=== PATIENT | male | born 1940 | race Caucasian/White ===

== ENCOUNTER 2018-01-19 12:54 | Emergency (ER) | payer OTHER ==
[2018-01-19 13:01] VITALS: BP 147/84; PULSE 98; TEMP 97.5; BMI 23.7
--- NOTE | 2018-01-19 13:06 | PDOC ---
History of Present Illness - General Chief Complaint: Pain Stated Complaint: RT FOOT PAIN, SWELLING Time Seen by Provider: 01/19/18 13:00 History Source: Patient (Patient walked in complaining of pain and swelling of right foot, probable for 3-4 days.Seen at his hospital, X rays done post op shoe applied, wearing it comfortable), Care Provider (at [facility]) - History of Present Illness Timing/Duration: unsure Severity: mild Modifying Factors: improves with: rest Associated Symptoms: reports: denies symptoms Past History - Travel Traveled outside of the country in the last 30 days: No Close contact w/someone who was outside of country & ill: No - Past Medical History Allergies/Adverse Reactions: Allergies Allergy/AdvReac Type Severity Reaction Status Date / Time No Known Allergies Allergy Verified 01/19/18 12:56 Home Medications: Ambulatory Orders NK [No Known Home Medication] 01/19/18 Anemia: No Asthma: No Cancer: No Cardiac Disorders: Yes (H/O IRREGULAR HEARTBEAT X 1) CVA: No COPD: No CHF: No Dementia: No Diabetes: No GI Disorders: No Disorders: No HTN: No Hypercholesterolemia: No Liver Disease: No Seizures: No Thyroid Disease: No - Surgical History Abdominal Surgery: No Appendectomy: No Cardiac Surgery: No Cholecystectomy: No Lung Surgery: No Neurologic Surgery: No Orthopedic Surgery: No - Immunization History Immunization Up to Date: Yes - Suicide/Smoking/Psychosocial Hx Smoking History: Never smoked Have you smoked in the past 12 months: No Information on smoking cessation initiated: No Hx Alcohol Use: No Drug/Substance Use Hx: No Substance Use Type: None Hx Substance Use Treatment: No Review of Systems - Review of Systems Able to Perform ROS?: Yes Is the patient limited Japanese proficient: Yes Constitutional: No: Symptoms Reported, See HPI, Chills, Diaphoresis, Fever, Loss of Appetite, Malaise, Night Sweats, Weakness, Weight Stable, Unintentional Wgt. Loss, Unexplained wgt Loss, Other HEENTM: No: Symptoms Reported, See HPI, Eye Pain, Blurred Vision, Tearing, Recent change in vision, Double Vision, Cataracts, Ear Pain, Ocular Prothesis, Ear Discharge, Nose Pain, Nose Congestion, Tinnitus, Nose Bleeding, Hearing Loss , Throat Pain, Throat Swelling, Mouth Pain, Dental Problems, Difficulty Swallowing, Mouth Swelling, Other Musculoskeletal: Yes: Symptoms Reported, See HPI, Joint Pain All Other Systems: Reviewed and Negative *Physical Exam - Vital Signs Last Vital Signs Temp Pulse Resp BP Pulse Ox 97.5 F L 98 H 18 147/84 97 01/19/18 12:54 01/19/18 12:54 01/19/18 12:54 01/19/18 12:54 01/19/18 12:54 - Physical Exam General Appearance: Yes: Nourished, Appropriately Dressed, Mild Distress HEENT: positive: ARIES Neck: positive: Supple Vascular Pulses: Femoral (R): 4+, Femoral (L): 4+, Dorsalis-Pedis (R): 4+, Doralis-Pedis (L): 4+ Extremity: positive: Normal Capillary Refill, Tender (Tenderness on the lateral aspect of the foot with no discoloration. Normal Achile's Normal ankle exam). 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, Fully Oriented (Some limitation in thought processs, memory...), Alert, Normal Mood/Affect Medical Decision Making - Medical Decision Making X rays read by me = destiny 01/22/18 07:48 *DC/Admit/Observation/Transfer Diagnosis at time of Disposition: Foot sprain Qualifiers: Encounter type: initial encounter Laterality: right Qualified Code(s): S93.601A - Unspecified sprain of right foot, initial encounter - Discharge Dispostion Disposition: HOME Condition at time of disposition: Stable Decision to Admit order: No - Referrals - Patient Instructions Printed Discharge Instructions: DI for Foot Sprain Additional Instructions: Keep foot elevated - Post Discharge Activity
== END 2018-01-19 14:42 | disposition home or self-care (01) ==
LOC: FER 12:54
DX: S93.601A Unspecified sprain of right foot, initial encounter (principal); X58.XXXA Exposure to other specified factors, initial encounter; Y93.89 Activity, other specified; Y92.9 Unspecified place or not applicable; I49.9 Cardiac arrhythmia, unspecified
CPT/HCPCS: 73630-TC-RT-FY; 99283-25

== ENCOUNTER 2018-12-01 14:26 | Inpatient (IN) | payer OTHER ==
[2018-12-01 16:20] LABS: BASO % 0.6 % (0-2.0); EOS % 1.5 % (0-4.5); HEMATOCRIT 46.8 % (35.4-49); HEMOGLOBIN 15.8 GM/dl (11.7-16.9); LYMPH % 9.7 % (8-40); MCH 31.8 pg (25.7-33.7); MCHC 33.8 g/dl (32.0-35.9); MEAN CELL VOLUME 94.2 fl (80-96); MEAN PLT VOLUME 9.6 fl (7.5-11.1); MONO % 8.2 % (3.8-10.2); PLATELET COUNT 208 K/MM3 (134-434); RBC 4.97 M/mm3 (4.00-5.60); RDW 12.8 % (11.9-15.9); WHITE BLOOD COUNT 7.7 K/mm3 (4.0-10.8)
[2018-12-01 16:30] LABS: ALBUMIN 3.6 g/dl (3.4-5.0); BILIRUBIN,TOTAL 0.9 mg/dl (0.2-1); CALCIUM 8.9 mg/dl (8.5-10); CREATININE 1.1 mg/dl (0.55-1.3); POTASSIUM 3.9 mmol/L (3.5-5.1); TOT PROT 6.4 g/dl (6.4-8.2)
--- NOTE | 2018-12-01 17:21 | PDOC ---
Documentation entered by Luly Carver SCRIBE, acting as scribe for Ray Gary MD. Ray Gary MD: This documentation has been prepared by the Mehul hinkle Adrianna, SCRIBE, under my direction and personally reviewed by me in its entirety. I confirm that the documentation accurately reflects all work, treatment, procedures, and medical decision making performed by me. History of Present Illness - General Chief Complaint: Injury Stated Complaint: FALL,BRUISE TO EYE - History of Present Illness Initial Comments: The patient is an 78 year old male, with a significant PMH of recurrent falls, who presents to the ED for evaluation s/p fall earlier today. Patient notes he was out walking to get ice cream this afternoon, when he felt sudden onset resistance to move. Patient notes he pushed through this sensation, but felt weak and sleepy causing him to fall. He endorses hitting the right side of his head and has an abrasion to his right cheek. He denies any LOC, but notes he could not get up to walk again so a passerby called EMS. Patient reports feeling weak while in the ED. He denies any headache at this time. Patient is a poor historian. Allergies: NKA, NKDA Surgical History: None reported Social History: Denies EtOH, tobacco, or illicit drug use. Lives at home by self. PCP: Does not have one (referred to Babar Neumann) Past History - Past Medical History Allergies/Adverse Reactions: Allergies Allergy/AdvReac Type Severity Reaction Status Date / Time No Known Allergies Allergy Verified 12/01/18 14:27 Home Medications: Ambulatory Orders NK [No Known Home Medication] 01/19/18 Anemia: No Asthma: No Cancer: No Cardiac Disorders: Yes (H/O IRREGULAR HEARTBEAT X 1) CVA: No COPD: No CHF: No Dementia: No Diabetes: No GI Disorders: No Disorders: No HTN: No Hypercholesterolemia: No Liver Disease: No Seizures: No Thyroid Disease: No - Surgical History Abdominal Surgery: No Appendectomy: No Cardiac Surgery: No Cholecystectomy: No Lung Surgery: No Neurologic Surgery: No Orthopedic Surgery: No - Immunization History Immunization Up to Date: Yes - Suicide/Smoking/Psychosocial Hx Smoking History: Never smoked Have you smoked in the past 12 months: No Hx Alcohol Use: No Drug/Substance Use Hx: No Substance Use Type: None Hx Substance Use Treatment: No Review of Systems - Review of Systems Comments:: GENERAL/CONSTITUTIONAL: +S/p fall. +Weakness. No fever or chills. HEAD, EYES, EARS, NOSE AND THROAT: +Abrasion to the right cheek. No change in vision. No ear pain or discharge. No sore throat. CARDIOVASCULAR: No chest pain or shortness of breath. RESPIRATORY: No cough, wheezing, or hemoptysis. GASTROINTESTINAL: No nausea, vomiting, diarrhea or constipation. GENITOURINARY: No dysuria, frequency, or change in urination. MUSCULOSKELETAL: No joint or muscle swelling or pain. No neck or back pain. SKIN: No rash NEUROLOGIC: No headache, vertigo, loss of consciousness, or change in strength/ sensation. ENDOCRINE: No increased thirst. No abnormal weight change. HEMATOLOGIC/LYMPHATIC: No anemia, easy bleeding, or history of blood clots. ALLERGIC/IMMUNOLOGIC: No hives or skin allergy. *Physical Exam - Vital Signs Last Vital Signs Temp Pulse Resp BP Pulse Ox 98.3 F 87 18 126/77 94 L 12/01/18 14:27 12/01/18 14:27 12/01/18 14:27 12/01/18 14:27 12/01/18 14:27 - Physical Exam Comments: GENERAL: +Mildly confused. +Oriented to person and place, but not to time. + According to EMT who know the patient well, his mental status is unchanged from his usual baseline. No acute distress. Afebrile. Vital signs are normal. HEAD: +Mild contusion of the right lateral orbital rim without palpable deformity of significant tenderness. EYES: PERRLA, EOMI, sclera anicteric, conjunctiva clear. Visual schaefer intact. ENT: Auricles normal inspection, hearing grossly normal, nares patent, oropharynx clear without exudates. Moist mucosa NECK: Good ROM, supple, no lymphadenopathy, JVD, or masses. No deformity. LUNGS: Breath sounds equal, clear to auscultation bilaterally. No wheezes, and no crackles. No chest wall tenderness or deformity. No rib cage tenderness or deformity. HEART: Regular rate and rhythm, normal S1 and S2, no murmurs, rubs or gallops ABDOMEN: Soft, nontender, normoactive bowel sounds without organomegally. Nondistended. No guarding, no rebound. No masses EXTREMITIES: No visible or palpable trauma. Full range of motion of the bilateral shoulders and hips without restrictions, no edema. No clubbing or cyanosis. No cords, erythema, or tenderness NEUROLOGICAL: +Generalized weakness with inability to bear weight. Cranial nerves II through XII grossly intact. Normal speech. No focal sensory or motor deficits. SKIN: Warm, Dry, normal turgor, no rashes or lesions noted. ED Treatment Course - LABORATORY CBC & Chemistry Diagram: 12/01/18 15:45 12/01/18 15:45 - ADDITIONAL ORDERS Additional order review: Laboratory Results 12/01/18 12/01/18 12/01/18 16:19 15:45 15:45 Sodium 138 Potassium 3.9 Chloride 105 Carbon Dioxide 27 Anion Gap 6 L BUN 16.0 Creatinine 1.1 Est GFR (CKD-EPI)AfAm 73.09 Est GFR (CKD-EPI)NonAf 63.07 POC Glucometer 89 Random Glucose 96 Calcium 8.9 Total Bilirubin 0.9 AST 21 ALT 15 Alkaline Phosphatase 67 Creatine Kinase 129 Troponin I < 0.03 Total Protein 6.4 Albumin 3.6 12/01/18 12/01/18 16:19 15:45 RBC 4.97 MCV 94.2 MCHC 33.8 RDW 12.8 MPV 9.6 Neutrophils % 80.0 Lymphocytes % 9.7 D Monocytes % 8.2 Eosinophils % 1.5 D Basophils % 0.6 POC Glucometer 89 - RADIOLOGY Radiology Studies Ordered: Category Date Time Status HEAD CT WITHOUT CONTRAST [CT] Stat CT Scan 12/01/18 15:23 Completed CHEST X-RAY PORTABLE* [RAD] Stat Radiology 12/01/18 15:22 Taken Radiograph Interpretation: EXAM#: TYPE/EXAM: RESULT: [id number] CT/HEAD CT WITHOUT CONTRAST Evaluate for seizures IMPRESSION: No significant interval change or acute intracranial pathology is identified. Correlate clinically to determine further evaluation and follow-up. Reported By: Bran Hyman MD 12/01/18 15:52 Medical Decision Making - Medical Decision Making 12/01/18 17:08 78-year-old male with apparent syncopal episode while walking on a trail in the [facility]. Fell and injured his head. Discovered by fellow hikers and brought to the emergency room by EMS. Moderate dementia and confusion, though he is oriented to person and place. According to EMS personnel, who had had numerous encounters with this patient in the past, his mental status is unchanged from usual. Patient lives in his own house, which he shares with a friend named Dean. But he has no relatives. Attempts to call his home and speak to his friend were unsuccessful. I'll phone numbers that he has provided were nonfunctional. Patient complains of no injury or pain, but states that he "cannot walk". There are no focal sensory or motor deficits demonstrable, but on attempt to ambulate the patient he was unable to bear weight or ambulate at all. It seems likely that the patient has experienced a syncopal episode. He does admit to passing out in the past. He has no doctor and does not recall the last time he has seen a physician. It is uncertain whether the patient can continue to care for himself in his present condition. EKG reveals normal sinus rhythm 79/m. Left axis deviation. Incomplete right bundle branch block. There is poor R-wave progression and T-wave inversions in lead 1 and aVL. Chest x-ray appears negative CBC and chemistries show no significant abnormalities, with normal cardiac enzymes. The patient wears a diaper and so far the urine has not been obtained. 12/01/18 17:[address] is negative. Spoke to [employer] covering hospitalist service, for Dr. Enamorado. Accepted admission. *DC/Admit/Observation/Transfer Diagnosis at time of Disposition: Syncope Qualifiers: Syncope type: unspecified Qualified Code(s): R55 - Syncope and collapse - Discharge Dispostion Condition at time of disposition: Stable Decision to Admit order: Yes - Referrals - Patient Instructions - Post Discharge Activity
--- NOTE | 2018-12-01 18:13 | HP ---
CHIEF COMPLAINT: near syncope PCP: none HISTORY OF PRESENT ILLNESS: This is an 78 year old male with no reported past medical history as per patient , although chart review reveals h/o falls, who presented after a near-syncopal episode. Pt reports that he was walking and became very weak and was unable to stand. He fell, sustaining an abrasion to his right cheek and was unable to get up. Bystanders activated EMS and he was brought to the ED. He denies any loss of consciousness. Pt reports being in his usual state of health prior to incident and denies any SOB, chest pain, lightheadedness, dizziness, abdominal pain, N/V. ER course was notable for: (1) CT head without acute findings (2) ECG without acute changes (3) troponin WNL Recent Travel: none PAST MEDICAL HISTORY: pt denies PAST SURGICAL HISTORY: pt denies Social History: Smoking: pt denies Alcohol: pt denies Drugs: pt denies Family History: Pt is unsure how his parents , but can not recall any heart disease, stroke or cancer Pt has no siblings Allergies No Known Allergies Allergy (Verified 12/01/18 14:27) HOME MEDICATIONS: 3 Medication Instructions Recorded NK [No Known Home Medication] 01/19/18 REVIEW OF SYSTEMS CONSTITUTIONAL: Present: generalized weakness, malaise Absent: fever, chills, diaphoresis, loss of appetite, weight change HEENT: Absent: rhinorrhea, nasal congestion, throat pain, throat swelling, difficulty swallowing, mouth swelling, ear pain, eye pain, visual changes CARDIOVASCULAR: Absent: chest pain, syncope, palpitations, irregular heart rate, lightheadedness , peripheral edema RESPIRATORY: Absent: cough, shortness of breath, dyspnea with exertion, orthopnea, wheezing, stridor, hemoptysis GASTROINTESTINAL: Absent: abdominal pain, abdominal distension, nausea, vomiting, diarrhea, constipation, melena, hematochezia GENITOURINARY: Absent: dysuria, frequency, urgency, hesitancy, hematuria, flank pain, genital pain MUSCULOSKELETAL: Absent: myalgia, arthralgia, joint swelling, back pain, neck pain SKIN: Absent: rash, itching, pallor HEMATOLOGIC/IMMUNOLOGIC: Absent: easy bleeding, easy bruising, lymphadenopathy, frequent infections ENDOCRINE: Absent: unexplained weight gain, unexplained weight loss, heat intolerance, cold intolerance NEUROLOGIC: Absent: headache, focal weakness or paresthesias, dizziness, unsteady gait, seizure, mental status changes, bladder or bowel incontinence PSYCHIATRIC: Absent: anxiety, depression, suicidal or homicidal ideation, hallucinations. PHYSICAL EXAMINATION Vital Signs - 24 hr 3 12/01/18 14:27 Temperature 98.3 F Pulse Rate 87 Respiratory 18 Rate Blood Pressure 126/77 O2 Sat by Pulse 94 L Oximetry (%) GENERAL: Awake, alert, and fully oriented, in no acute distress. HEAD: Normal with no signs of trauma. EYES: Pupils equal, round and reactive to light, extraocular movements intact, sclera anicteric, conjunctiva clear. No lid lag. EARS, NOSE, THROAT: Ears normal, nares patent, oropharynx clear without exudates. Moist mucous membranes. NECK: Normal range of motion, supple without lymphadenopathy, JVD, or masses. LUNGS: Breath sounds equal, clear to auscultation bilaterally. No wheezes, and no crackles. No accessory muscle use. HEART: Regular rate and rhythm, normal S1 and S2 without murmur, rub or gallop. ABDOMEN: Soft, nontender, not distended, normoactive bowel sounds, no guarding, no rebound, no masses. No hepatomegaly or splenomegaly. MUSCULOSKELETAL: Normal range of motion at all joints. No bony deformities or tenderness. No CVA tenderness. UPPER EXTREMITIES: 2+ pulses, warm, well-perfused. No cyanosis. No clubbing. No peripheral edema. LOWER EXTREMITIES: 2+ pulses, warm, well-perfused. No calf tenderness. No peripheral edema. NEUROLOGICAL: Cranial nerves II-XII grossly intact. Normal speech. Gait not observed. PSYCHIATRIC: Cooperative. Good eye contact. Appropriate mood and affect. SKIN: Warm, dry, normal turgor, no rashes or lesions noted, normal capillary refill. Laboratory Results - last 24 hr 3 12/01/18 12/01/18 12/01/18 12/01/18 15:45 15:45 15:45 16:19 WBC 7.7 RBC 4.97 Hgb 15.8 Hct 46.8 MCV 94.2 MCH 31.8 MCHC 33.8 RDW 12.8 Plt Count 208 D MPV 9.6 Absolute Neuts (auto) 6.3 Neutrophils % 80.0 Lymphocytes % 9.7 D Monocytes % 8.2 Eosinophils % 1.5 D Basophils % 0.6 Sodium 138 Potassium 3.9 Chloride 105 Carbon Dioxide 27 Anion Gap 6 L BUN 16.0 Creatinine 1.1 Est GFR (CKD-EPI)AfAm 73.09 Est GFR (CKD-EPI)NonAf 63.07 POC Glucometer 89 Random Glucose 96 Calcium 8.9 Total Bilirubin 0.9 AST 21 ALT 15 Alkaline Phosphatase 67 Creatine Kinase 129 Troponin I < 0.03 Total Protein 6.4 Albumin 3.6 ECG NORMAL SINUS RHYTHM vent rate 79, QTC 477 non specific T wave abnormality; TWI lead I, aVL possible left atrial enlargement left axis deviation incomplete RBBB CT head IMPRESSION: No significant interval change or acute intracranial pathology is identified. Correlate clinically to determine further evaluation and follow-up. Reported By: Bran Hyman MD 12/01/18 [id number] ASSESSMENT/PLAN: 78yM with no known past medical history presented s/p near syncopal event now being admitted for further observation. Near-syncope/generalized weakness - troponin neg x1, trend x 2 more - ECG without acute changes - consider echocardiogram, last in 2016, normal EF and LV size - consider neuro consult - consider PT consult if no improvement FEN - po fluids as tolerated - BMP in am - low sodium diet as tolerated DVT PPX deferred as anticipated LOS <48h, reassess if LOS exceeds 48h Dispo: pt requires further observation for management of his emergent condition. Family Medical History Family History: Denies Visit type - Emergency Visit Emergency Visit: Yes ED Registration Date: 12/01/18 Care time: The patient presented to the Emergency Department on the above date and was hospitalized for further evaluation of their emergent condition. - New Patient This patient is new to me today: Yes Date on this admission: 12/01/18 - Critical Care Critical Care patient: No
[2018-12-01 19:01] VITALS: BMI 26.7
[2018-12-01 22:38] LABS: EPITHELIAL CELLS FEW /hpf
[2018-12-02 09:10] LABS: HEMATOCRIT 47.2 % (35.4-49); HEMOGLOBIN 15.9 GM/dl (11.7-16.9); MCHC 33.8 g/dl (32.0-35.9); MEAN CELL VOLUME 94.9 fl (80-96); MEAN PLT VOLUME 10.6 fl (7.5-11.1); PLATELET COUNT 148 K/MM3 (134-434); RBC 4.97 M/mm3 (4.00-5.60); RDW 12.4 % (11.9-15.9); WHITE BLOOD COUNT 6.9 K/mm3 (4.0-10.8)
[2018-12-02 09:26] LABS: CALCIUM 8.7 mg/dl (8.5-10); PHOSPHOROUS 2.9 mg/dl (2.5-4.9); POTASSIUM 4.2 mmol/L (3.5-5.1)
--- NOTE | 2018-12-02 10:18 | PN ---
Physical Exam: SUBJECTIVE: Patient seen and examined, pt denies BASS, dizziness, cp, sob, palpitations, abdominal pain, N/V/D or urinary symptoms. OBJECTIVE: Vital Signs Period Temp Pulse Resp BP Sys/Stanton Pulse Ox Last 24 Hr 97.8 F-98.9 F 70-90 17-18 126-150/77-96 91-97 GENERAL: The patient is awake, alert, and fully oriented, in no acute distress. HEAD: Normal with no signs of trauma. EYES: PERRL, extraocular movements intact, sclera anicteric, conjunctiva clear. No ptosis. ENT: Ears normal, nares patent, oropharynx clear without exudates, moist mucous membranes. NECK: Trachea midline, full range of motion, supple. LUNGS: Breath sounds equal, clear to auscultation bilaterally, no wheezes, no crackles, no accessory muscle use. HEART: Regular rate and rhythm, S1, S2 without murmur, rub or gallop. ABDOMEN: Soft, nontender, nondistended, normoactive bowel sounds, no guarding, no rebound, no hepatosplenomegaly, no masses. EXTREMITIES: 2+ pulses, warm, well-perfused, no edema. NEUROLOGICAL: Cranial nerves II through XII grossly intact. Normal speech, gait not observed. PSYCH: Normal mood, normal affect. SKIN: Warm, dry, normal turgor, no rashes or lesions noted- RT cheek with mild redness and abrasion. Laboratory Results - last 24 hr 12/01/18 12/01/18 12/01/18 15:45 15:45 15:45 WBC 7.7 RBC 4.97 Hgb 15.8 Hct 46.8 MCV 94.2 MCH 31.8 MCHC 33.8 RDW 12.8 Plt Count 208 D MPV 9.6 Absolute Neuts (auto) 6.3 Neutrophils % 80.0 Lymphocytes % 9.7 D Monocytes % 8.2 Eosinophils % 1.5 D Basophils % 0.6 Sodium 138 Potassium 3.9 Chloride 105 Carbon Dioxide 27 Anion Gap 6 L BUN 16.0 Creatinine 1.1 Est GFR (CKD-EPI)AfAm 73.09 Est GFR (CKD-EPI)NonAf 63.07 POC Glucometer Random Glucose 96 Calcium 8.9 Phosphorus Magnesium Total Bilirubin 0.9 AST 21 ALT 15 Alkaline Phosphatase 67 Creatine Kinase 129 Troponin I < 0.03 Total Protein 6.4 Albumin 3.6 Urine Color Urine Appearance Urine pH Urine Protein Urine Glucose (UA) Urine Ketones Urine Blood Urine Nitrite Urine Bilirubin Urine Urobilinogen Ur Leukocyte Esterase Urine RBC Urine WBC Ur Transition Epith Cell 12/01/18 12/01/18 12/01/18 16:19 22:00 22:05 WBC RBC Hgb Hct MCV MCH MCHC RDW Plt Count MPV Absolute Neuts (auto) Neutrophils % Lymphocytes % Monocytes % Eosinophils % Basophils % Sodium Potassium Chloride Carbon Dioxide Anion Gap BUN Creatinine Est GFR (CKD-EPI)AfAm Est GFR (CKD-EPI)NonAf POC Glucometer 89 Random Glucose Calcium Phosphorus Magnesium Total Bilirubin AST ALT Alkaline Phosphatase Creatine Kinase Troponin I < 0.03 Total Protein Albumin Urine Color Yellow Urine Appearance Clear Urine pH 7.0 Urine Protein Negative Urine Glucose (UA) Negative Urine Ketones Negative Urine Blood Negative Urine Nitrite Negative Urine Bilirubin Negative Urine Urobilinogen 0.2 Ur Leukocyte Esterase Trace H Urine RBC No Result Required. Urine WBC 5-10 Ur Transition Epith Cell Few 12/02/18 12/02/18 12/02/18 06:00 06:00 06:00 WBC 6.9 RBC 4.97 Hgb 15.9 Hct 47.2 MCV 94.9 MCH 32.0 MCHC 33.8 RDW 12.4 Plt Count 148 D MPV 10.6 D Absolute Neuts (auto) Neutrophils % Lymphocytes % Monocytes % Eosinophils % Basophils % Sodium 138 Potassium 4.2 Chloride 105 Carbon Dioxide 28 Anion Gap 5 L BUN 14.0 Creatinine 1.0 Est GFR (CKD-EPI)AfAm 82.02 Est GFR (CKD-EPI)NonAf 70.77 POC Glucometer Random Glucose 81 Calcium 8.7 Phosphorus 2.9 Magnesium 2.0 Total Bilirubin AST ALT Alkaline Phosphatase Creatine Kinase Troponin I < 0.03 Total Protein Albumin Urine Color Urine Appearance Urine pH Urine Protein Urine Glucose (UA) Urine Ketones Urine Blood Urine Nitrite Urine Bilirubin Urine Urobilinogen Ur Leukocyte Esterase Urine RBC Urine WBC Ur Transition Epith Cell CT head: No significant interval change or acute intracranial pathology is identified. Correlate clinically to determine further evaluation and follow-up. CxR: No acute lung pathology ASSESSMENT/PLAN: 78 year old male with hx of fall, who presents to ER after a fall, pt reports became unsteady while walking lost balance and fell., denies LOC. *S/p fall - unsteady gait/generalized weakness -Trop neg x3, ACS ruled out - ECG without acute changes - tele monitoring - will check orthostatic vitals - Echocardiogram, last in 2017, normal EF and LV size - carotid US in 2017- No significant stenosis - PT eval - TFT's, B12 ordered - neuro consult requested - labs reviewed- stable - case discussed with cardiology Dr. Fernandez,states unlikely cardiac in origin since pt only c/o unsteady gait,no dizziness, cp,sob or palpitations - no need to repeat Echo *FEN - po fluids as tolerated - BMP in am - low sodium diet as tolerated DVT:Heparin SQ Dispo: pt requires further observation for management of his emergent condition. Visit type - Emergency Visit Emergency Visit: Yes ED Registration Date: 12/01/18 Care time: The patient presented to the Emergency Department on the above date and was hospitalized for further evaluation of their emergent condition. - New Patient This patient is new to me today: Yes Date on this admission: 12/02/18 - Critical Care Critical Care patient: No
[2018-12-02] MEDS ORDERED: ACETAMINOPHEN 325 MG TABLET (FP) PO PRN (10:19)
--- NOTE | 2018-12-02 12:27 | CONSULT ---
Consult - text type - Consultation Consultation Note: Neurology CHIEF COMPLAINT: near syncope PCP: none HISTORY OF PRESENT ILLNESS: This is an 78 year old male with no reported past medical history as per patient , although chart review reveals h/o falls, who presented after a near-syncopal episode. Pt reports that he was walking and became very weak and was unable to stand. He fell, sustaining an abrasion to his right cheek and was unable to get up. Bystanders activated EMS and he was brought to the ED. He denies any loss of consciousness. Pt reports being in his usual state of health prior to incident and denies any SOB, chest pain, lightheadedness, dizziness, abdominal pain, N/V. Head CT completed, no significant interval change or acute intracranial pathology is identified. He is unsteady in gait which appears to be mechanical as he has kyphosis and leaning forward. No evidence of Parkinson' s or shuffling. No tremor, no cogwheeling. No focal deficits to indicate CVA and CT head negative. May benefit from cardiac eval/monitoring and physical therapy. Recent Travel: none PAST MEDICAL HISTORY: pt denies PAST SURGICAL HISTORY: pt denies Social History: Smoking: pt denies Alcohol: pt denies Drugs: pt denies Family History: Pt is unsure how his parents , but can not recall any heart disease, stroke or cancer Pt has no siblings Allergies No Known Allergies Allergy (Verified 12/01/18 14:27) Ambulatory Orders NK [No Known Home Medication] 01/19/18 REVIEW OF SYSTEMS CONSTITUTIONAL: Present: generalized weakness, malaise Absent: fever, chills, diaphoresis, loss of appetite, weight change HEENT: Absent: rhinorrhea, nasal congestion, throat pain, throat swelling, difficulty swallowing, mouth swelling, ear pain, eye pain, visual changes CARDIOVASCULAR: Absent: chest pain, syncope, palpitations, irregular heart rate, lightheadedness , peripheral edema RESPIRATORY: Absent: cough, shortness of breath, dyspnea with exertion, orthopnea, wheezing, stridor, hemoptysis GASTROINTESTINAL: Absent: abdominal pain, abdominal distension, nausea, vomiting, diarrhea, constipation, melena, hematochezia GENITOURINARY: Absent: dysuria, frequency, urgency, hesitancy, hematuria, flank pain, genital pain MUSCULOSKELETAL: Absent: myalgia, arthralgia, joint swelling, back pain, neck pain SKIN: Absent: rash, itching, pallor HEMATOLOGIC/IMMUNOLOGIC: Absent: easy bleeding, easy bruising, lymphadenopathy, frequent infections ENDOCRINE: Absent: unexplained weight gain, unexplained weight loss, heat intolerance, cold intolerance NEUROLOGIC: Absent: headache, focal weakness or paresthesias, dizziness, unsteady gait, seizure, mental status changes, bladder or bowel incontinence PSYCHIATRIC: Absent: anxiety, depression, suicidal or homicidal ideation, hallucinations. PHYSICAL EXAMINATION Vital Signs Period Temp Pulse Resp BP Sys/Stanton Pulse Ox Last 24 Hr 97.8 F-98.9 F 66-90 17-20 126-150/77-96 91-97 GENERAL: Awake, alert, and fully oriented, in no acute distress. HEAD: Normal with no signs of trauma. EYES: Pupils equal, round and reactive to light, extraocular movements intact, sclera anicteric, conjunctiva clear. No lid lag. EARS, NOSE, THROAT: Ears normal, nares patent, oropharynx clear without exudates. Moist mucous membranes. NECK: Normal range of motion, supple without lymphadenopathy, JVD, or masses. LUNGS: Breath sounds equal, clear to auscultation bilaterally. No wheezes, and no crackles. No accessory muscle use. HEART: Regular rate and rhythm, normal S1 and S2 without murmur, rub or gallop. ABDOMEN: Soft, nontender, not distended, normoactive bowel sounds, no guarding, no rebound, no masses. No hepatomegaly or splenomegaly. MUSCULOSKELETAL: Normal range of motion at all joints. No bony deformities or tenderness. No CVA tenderness. UPPER EXTREMITIES: 2+ pulses, warm, well-perfused. No cyanosis. No clubbing. No peripheral edema. LOWER EXTREMITIES: 2+ pulses, warm, well-perfused. No calf tenderness. No peripheral edema. NEUROLOGICAL: Cranial nerves II-XII grossly intact. Normal speech. Gait not observed. PSYCHIATRIC: Cooperative. Good eye contact. Appropriate mood and affect. SKIN: Warm, dry, normal turgor, no rashes or lesions noted, normal capillary refill. CBCD WBC 6.9 K/mm3 (4.0-10.8) 12/02/18 06:00 RBC 4.97 M/mm3 (4.00-5.60) 12/02/18 06:00 Hgb 15.9 GM/dl (11.7-16.9) 12/02/18 06:00 Hct 47.2 % (35.4-49) 12/02/18 06:00 MCV 94.9 fl (80-96) 12/02/18 06:00 MCHC 33.8 g/dl (32.0-35.9) 12/02/18 06:00 RDW 12.4 % (11.9-15.9) 12/02/18 06:00 Plt Count 148 K/MM3 (134-434) D 12/02/18 06:00 MPV 10.6 fl (7.5-11.1) D 12/02/18 06:00 CMP Sodium 138 mmol/L (136-145) 12/02/18 06:00 Potassium 4.2 mmol/L (3.5-5.1) 12/02/18 06:00 Chloride 105 mmol/L (98-107) 12/02/18 06:00 Carbon Dioxide 28 mmol/L (21-32) 12/02/18 06:00 Anion Gap 5 MMOL/L (8-16) L 12/02/18 06:00 BUN 14.0 mg/dl (7-18) 12/02/18 06:00 Creatinine 1.0 mg/dl (0.55-1.3) 12/02/18 06:00 Random Glucose 81 mg/dl (74-106) 12/02/18 06:00 Calcium 8.7 mg/dl (8.5-10) 12/02/18 06:00 Total Bilirubin 0.9 mg/dl (0.2-1) 12/01/18 15:45 AST 21 U/L (15-37) 12/01/18 15:45 ALT 15 U/L (13-61) 12/01/18 15:45 Alkaline Phosphatase 67 U/L (45-117) 12/01/18 15:45 Total Protein 6.4 g/dl (6.4-8.2) 12/01/18 15:45 Albumin 3.6 g/dl (3.4-5.0) 12/01/18 15:45 CARDIAC ENZYMES Creatine Kinase 129 U/L (26-308) 12/01/18 15:45 Troponin I < 0.03 ng/ml (0.00-0.05) 12/02/18 06:00 ECG NORMAL SINUS RHYTHM vent rate 79, QTC 477 non specific T wave abnormality; TWI lead I, aVL possible left atrial enlargement left axis deviation incomplete RBBB CT head IMPRESSION: No significant interval change or acute intracranial pathology is identified. ASSESSMENT/PLAN: 78 year old male with no reported past medical history as per patient, although chart review reveals h/o falls, who presented after a near-syncopal episode. Pt reports that he was walking and became very weak and was unable to stand. He fell, sustaining an abrasion to his right cheek and was unable to get up. Bystanders activated EMS and he was brought to the ED. He denies any loss of consciousness. Pt reports being in his usual state of health prior to incident and denies any SOB, chest pain, lightheadedness, dizziness, abdominal pain, N/ V. Head CT completed, no significant interval change or acute intracranial pathology is identified. He is unsteady in gait which appears to be mechanical as he has kyphosis and leaning forward. No evidence of Parkinson's or shuffling. No tremor, no cogwheeling. No focal deficits to indicate CVA and CT head negative. May benefit from cardiac eval/monitoring and physical therapy. Fall precautions. Consider short term rehab if patient amenable. Follow up tele monitoring, maintain adequate hydration.
[2018-12-02] MEDS: HEPARIN NA (PORCINE) 5,000 UNITS/ML 1ML VIAL SQ SCH ×2 (14:54→22:16)
[2018-12-03] MEDS: HEPARIN NA (PORCINE) 5,000 UNITS/ML 1ML VIAL SQ SCH ×3 (06:37→22:08)
--- NOTE | 2018-12-03 07:13 | EKG ---
Test Reason : Blood Pressure : / mmHG Vent. Rate : 079 BPM Atrial Rate : 079 BPM P-R Int : 148 ms QRS Dur : 096 ms QT Int : 416 ms P-R-T Axes : 061 -45 103 degrees QTc Int : 477 ms NORMAL SINUS RHYTHM POSSIBLE LEFT ATRIAL ENLARGEMENT LEFT AXIS DEVIATION INCOMPLETE RIGHT BUNDLE BRANCH BLOCK T WAVE ABNORMALITY, CONSIDER LATERAL ISCHEMIA ABNORMAL ECG NO PREVIOUS ECGS AVAILABLE Confirmed by MARYJANE RESENDIZ, TESSY ([id number]) on 12/03/2018 7:12:57 AM Referred By: Confirmed By:TESSY WESLEY MD
--- NOTE | 2018-12-03 15:40 | PN ---
Physical Exam: SUBJECTIVE: Patient seen and examined oob to chair. OBJECTIVE: Vital Signs Period Temp Pulse Resp BP Sys/Stanton Pulse Ox Last 24 Hr 97.4 F-98.2 F 69-155 19-20 134-184/78-104 93-96 GENERAL: The patient is awake, alert, oriented to person, [facility], 2019. Some responses are vague, meandering, unfinished sentences. LUNGS: CTA HEART: Regular rate and rhythm, S1, S2 +murmur ABDOMEN: Soft, nontender, nondistended, normoactive bowel sounds EXTREMITIES: 2+ pulses, warm, well-perfused, no edema. NEUROLOGICAL: Cranial nerves II through XII grossly intact. Normal speech, steady gait. Laboratory Results - last 24 hr 12/02/18 06:00 Vitamin B12 480 TSH 5.85 Hgf Free T4 0.80 Active Medications Generic Name Dose Route Start Last Admin Trade Name Freq PRN Reason Stop Dose Admin Acetaminophen 650 mg 12/02/18 10:19 Tylenol - PO Q4H PRN PAIN LEVEL 1-5 Heparin Sodium (Porcine) 5,000 unit 12/02/18 14:00 12/03/18 06:37 Heparin - SQ 5,000 unit TID MARISSA Administration ASSESSMENT/PLAN: 78 year-old male with a PMH significant for recurrent falls, placed on observation for syncope. Has not seen a health care provider in many years. Syncope --patient states this is not first episode, has happened twice before in past few months but cannot give details other than he feels he cannot walk any further and falls down --troponin neg x 3 --ECG: not acutely ischemic --CXR unremarkable --CT head no acute process --12/02 at 5:15p became tachycardic to 155 with spike in BP 184/104, was sitting eating lunch at time --cardiology consult requested --serial ECGs --continue telemetry monitoring --Echo --replete lytes K>4, Mg>2 --check orthostatics FEN Fluids: PO intake adequate Electrolytes: replete as indicated Nutrition: vegetarian DVT prophylaxis: subq heparin Physical therapy Dispo: requires continued inpatient care. Full code. Visit type - Emergency Visit Emergency Visit: Yes ED Registration Date: 12/01/18 Care time: The patient presented to the Emergency Department on the above date and was hospitalized for further evaluation of their emergent condition. - New Patient This patient is new to me today: No - Critical Care Critical Care patient: No
[2018-12-04] MEDS: HEPARIN NA (PORCINE) 5,000 UNITS/ML 1ML VIAL SQ SCH ×3 (06:12→21:18)
--- NOTE | 2018-12-04 13:42 | PN ---
Progress Note, Physician Chief Complaint: Syncope History of Present Illness: Patient seems to be a poor historian, thus history was reviewed and primarily obtained through chart. This is an 78 year old male with no reported past medical history as per patient , although chart review reveals h/o falls, who presented after a near-syncopal episode. Pt reports that he was walking and became very weak and was unable to stand. He fell, sustaining an abrasion to his right cheek and was unable to get up. Bystanders activated EMS and he was brought to the ED. He denies any loss of consciousness. Pt reports being in his usual state of health prior to incident and denies any SOB, chest pain, lightheadedness, dizziness, abdominal pain, N/V. ER course was notable for: (1) CT head without acute findings (2) troponin WNL Denies CP or SOB. Denies edema. He states he has had multiple similar episodes over the last week but did not seek medical attention ECG: NSR 79bpm. LAE, TWI I and [employer] RBBB. T wave inversions are new from 2017 TELE: reviewed. NSR. Strips in chart reviewed. Episode of narrow complex rapid tachy 12/02 around 160bpm which appears to be atrial tach, self limited PMH: None ALL: Denies MEDS: Denies FH: Denies early family hx CAD SH: Lives alone, denies smoking. - Current Medication List Current Medications: Active Medications Acetaminophen (Tylenol -) 650 mg PO Q4H PRN PRN Reason: PAIN LEVEL 1-5 Heparin Sodium (Porcine) (Heparin -) 5,000 unit SQ TID [facility] Last Admin: 12/04/18 06:12 Dose: 5,000 unit - Objective Vital Signs: Vital Signs Temperature 98.0 F 12/04/18 06:00 Pulse Rate 63 12/04/18 06:00 Respiratory Rate 19 12/04/18 06:00 Blood Pressure 144/91 12/04/18 06:00 O2 Sat by Pulse Oximetry (%) 95 12/04/18 06:43 Constitutional: Yes: No Distress, Calm Eyes: Yes: Conjunctiva Clear Cardiovascular: Yes: Regular Rate and Rhythm Respiratory: Yes: CTA Bilaterally Gastrointestinal: Yes: Soft Edema: No Peripheral Pulses WNL: Yes Neurological: Yes: Alert, Oriented Labs: CBC, BMP 12/02/18 06:00 12/02/18 06:00 Laboratory Tests 12/01/18 12/02/18 22:00 06:00 Troponin I < 0.03 < 0.03 - ....Imaging Chest X-ray: Report Reviewed Cat Scan: Report Reviewed EKG: Image Reviewed Assessment/Plan IMP: Syncope, recurrent episodes Abnl ECG: new TWI since 2017 (I, avL) PSVT, suspect atrial tachycardia Underlying dementia suspected HTN REC: 1. Continued tele 2. Echo for EF assessment 3. Nuclear stress test (Lexiscan) to r/o ischemia 4. Trial of beta cesilia for HTN/PSVT
--- NOTE | 2018-12-04 14:19 | PN ---
Physical Exam: SUBJECTIVE: Patient seen and examined OBJECTIVE: Vital Signs Period Temp Pulse Resp BP Sys/Stanton Pulse Ox Last 24 Hr 97.8 F-98.6 F 61-81 18-19 144-162/80-98 95-99 GENERAL: The patient is awake, alert, and fully oriented, in no acute distress. HEAD: Normal with no signs of trauma. EYES: PERRL, extraocular movements intact, sclera anicteric, conjunctiva clear. No ptosis. ENT: Ears normal, nares patent, oropharynx clear without exudates, moist mucous membranes. NECK: Trachea midline, full range of motion, supple. LUNGS: Breath sounds equal, clear to auscultation bilaterally, no wheezes, no crackles, no accessory muscle use. HEART: Regular rate and rhythm, S1, S2 without murmur, rub or gallop. ABDOMEN: Soft, nontender, nondistended, normoactive bowel sounds, no guarding, no rebound, no hepatosplenomegaly, no masses. EXTREMITIES: 2+ pulses, warm, well-perfused, no edema. NEUROLOGICAL: Cranial nerves II through XII grossly intact. Normal speech, gait not observed. PSYCH: Normal mood, normal affect. SKIN: Warm, dry, normal turgor, no rashes or lesions noted Active Medications Generic Name Dose Route Start Last Admin Trade Name Freq PRN Reason Stop Dose Admin Acetaminophen 650 mg 12/02/18 10:19 Tylenol - PO Q4H PRN PAIN LEVEL 1-5 Heparin Sodium (Porcine) 5,000 unit 12/02/18 14:00 12/04/18 06:12 Heparin - SQ 5,000 unit TID [facility] Administration Dextrose/Sodium Chloride 1,000 mls @ 75 mls/hr 12/05/18 00:01 D5-1/2ns - IV ASDIR MARISSA Metoprolol Tartrate 12.5 mg 12/04/18 14:00 Lopressor - PO BID [facility] ASSESSMENT/PLAN:
--- NOTE | 2018-12-04 14:58 | ECHO ---
Version: 1 Name: ROCKY MORSE Exam: Adult Echocardiogram Study Date: 12/04/2018, 2:01 PM Age: 78 Years MMode/2D Measurements & Calculations IVSd: 1.23 cm LVIDs: 2.5 cm LVIDd: 4.0 cm LVPWd: 1.23 cm LVOT diam: 1.99 cm Ao root diam: 3.4 cm LA dimension: 2.6 cm Doppler Measurements & Calculations MV E max dario: 75.9 cm/sec MV A max dario: 86.4 cm/sec MV E/A: 0.88 Ao max P.4 mmHg Ao V2 max: 136.1 cm/sec PI end-d dario: 128.2 cm/sec TR max dario: 170.1 cm/sec TR max P.6 mmHg Left Ventricle The left ventricular size, thickness and function are normal. There is mild concentric left ventricu lar hypertrophy. Ejection Fraction = 65-70%. The transmitral spectral Doppler flow pattern is suggestive of impaired LV relaxation. Right Ventricle The right ventricle is normal in size and function. Atria Normal left and right atrial size and function. Mitral Valve There is mild mitral annular calcification. There is trace mitral regurgitation. Tricuspid Valve The tricuspid valve is normal. There is mild tricuspid regurgitation. Aortic Valve The aortic valve is normal in structure and function. Trace aortic regurgitation. Pulmonic Valve The pulmonic valve leaflets are thin and pliable; valve motion is normal. Mild pulmonic valvular regurgitation. Great Vessels The aortic root is normal size. Normal aortic arch, descending and ascending aorta. Pericardium/Pleura There is no pericardial effusion. Summary Statements The left ventricular size, thickness and function are normal There is mild concentric left ventricular hypertrophy. Ejection Fraction = 65-70%. The transmitral spectral Doppler flow pattern is suggestive of impaired LV relaxation. The right ventricle is normal in size and function. Normal left and right atrial size and function. There is mild mitral annular calcification. There is trace mitral regurgitation. The tricuspid valve is normal. There is mild tricuspid regurgitation. The aortic valve is normal in structure and function. Trace aortic regurgitation. The pulmonic valve leaflets are thin and pliable; valve motion is normal. Mild pulmonic valvular regurgitation. The aortic root is normal size. Normal aortic arch, descending and ascending aorta There is no pericardial effusion. Dagoberto Watts 12/04/2018, 1:58 PM Ordering Physician: Sarah Villegas Performed By: Suzie Hodgson
[2018-12-04] MEDS: METOPROLOL TARTRATE 25 MG TABLET (FP) PO SCH ×2 (15:19→21:18)
[2018-12-05] MEDS ORDERED: DEXTROSE 5%-0.45% SALINE 1,000 ML IV SCH (00:01)
[2018-12-05] MEDS: HEPARIN NA (PORCINE) 5,000 UNITS/ML 1ML VIAL SQ SCH ×3 (06:38→22:12)
[2018-12-05] MEDS ORDERED: REGADENOSON 0.4 MG/5 ML PRE-FILLED SYRINGE IVPUSH ONE ×2 (10:00→10:28)
--- NOTE | 2018-12-05 11:39 | PN ---
Physical Exam: SUBJECTIVE: Patient seen and examined OBJECTIVE: Vital Signs Period Temp Pulse Resp BP Sys/Stanton Pulse Ox Last 24 Hr 97.8 F-98.4 F 63-78 18-20 134-148/75-86 93-96 GENERAL: The patient is awake, alert, and fully oriented, in no acute distress. HEAD: Normal with no signs of trauma. EYES: PERRL, extraocular movements intact, sclera anicteric, conjunctiva clear. No ptosis. ENT: Ears normal, nares patent, oropharynx clear without exudates, moist mucous membranes. NECK: Trachea midline, full range of motion, supple. LUNGS: Breath sounds equal, clear to auscultation bilaterally, no wheezes, no crackles, no accessory muscle use. HEART: Regular rate and rhythm, S1, S2 without murmur, rub or gallop. ABDOMEN: Soft, nontender, nondistended, normoactive bowel sounds, no guarding, no rebound, no hepatosplenomegaly, no masses. EXTREMITIES: 2+ pulses, warm, well-perfused, no edema. NEUROLOGICAL: Cranial nerves II through XII grossly intact. Normal speech, gait not observed. PSYCH: Normal mood, normal affect. SKIN: Warm, dry, normal turgor, no rashes or lesions noted Active Medications Generic Name Dose Route Start Last Admin Trade Name Freq PRN Reason Stop Dose Admin Acetaminophen 650 mg 12/02/18 10:19 Tylenol - PO Q4H PRN PAIN LEVEL 1-5 Heparin Sodium (Porcine) 5,000 unit 12/02/18 14:00 12/05/18 06:38 Heparin - SQ 5,000 unit TID MARISSA Administration Dextrose/Sodium Chloride 1,000 mls @ 75 mls/hr 12/05/18 00:01 12/05/18 02:26 D5-1/2ns - IV 75 mls/hr ASDIR MARISSA Administration Metoprolol Tartrate 12.5 mg 12/04/18 14:00 12/04/18 21:18 Lopressor - PO 12.5 mg BID MARISSA Administration ASSESSMENT/PLAN:
[2018-12-05] MEDS: METOPROLOL TARTRATE 25 MG TABLET (FP) PO SCH ×2 (14:13→22:12)
--- NOTE | 2018-12-05 17:24 | PN ---
Progress Note (short form) - Note Progress Note: s: no cp sob palps dizzy loc Current Medications Generic Name Dose Route Start Last Admin Trade Name Freq PRN Reason Stop Dose Admin Acetaminophen 650 mg 12/02/18 10:19 Tylenol - PO Q4H PRN PAIN LEVEL 1-5 Heparin Sodium (Porcine) 5,000 unit 12/02/18 14:00 12/05/18 14:13 Heparin - SQ 5,000 unit TID MARISSA Administration Dextrose/Sodium Chloride 1,000 mls @ 75 mls/hr 12/05/18 00:01 12/05/18 02:26 D5-1/2ns - IV 75 mls/hr ASDIR MARISSA Administration Metoprolol Tartrate 12.5 mg 12/04/18 14:00 12/05/18 14:13 Lopressor - PO 12.5 mg BID MARISSA Administration Vital Signs Period Temp Pulse Resp BP Sys/Stanton Pulse Ox Last 24 Hr 97.5 F-98.4 F 63-92 18-28 134-148/72-86 93-96 Constitutional: Yes: No Distress, Calm Eyes: Yes: Conjunctiva Clear Cardiovascular: Yes: Regular Rate and Rhythm Respiratory: Yes: CTA Bilaterally nl eff Gastrointestinal: Yes: Soft Edema: No Peripheral Pulses WNL: Yes no jaundice diaphoresis Labs: CBC, BMP 12/02/18 06:00 12/02/18 06:00 tele: sr - ....Imaging Chest X-ray: Report Reviewed Cat Scan: Report Reviewed EKG: Image Reviewed Assessment/Plan IMP: Syncope, recurrent episodes Abnl ECG: new TWI since 2017 (I, avL) PSVT, suspect atrial tachycardia Underlying dementia suspected HTN REC: 1. tele benign here 2. Echo here unremarkable. 3. Nuclear stress test today with low risk findings. Given low risk study, lack of concerning sxs, and dementia, would continue with medical therapy of possible cad. Cont bb. Add asa 81 and atorva 40 qd. 4. cont bb for PAT cardiac arredondo stable for dc with outpt f/u
[2018-12-05] MEDS: ASPIRIN 81 MG CHEWABLE TABLETS PO SCH (17:48)
[2018-12-05] MEDS ORDERED: ATORVASTATIN CA 40 MG TABLET (FP) PO SCH (22:00)
[2018-12-06] MEDS: HEPARIN NA (PORCINE) 5,000 UNITS/ML 1ML VIAL SQ SCH (06:11)
[2018-12-06] MEDS: ASPIRIN 81 MG CHEWABLE TABLETS PO SCH (10:56)
[2018-12-06] MEDS: METOPROLOL TARTRATE 25 MG TABLET (FP) PO SCH (10:57)
--- NOTE | 2018-12-06 11:02 | DS ---
Physical Exam: SUBJECTIVE: Patient seen and examined oob to chair. OBJECTIVE: Vital Signs Period Temp Pulse Resp BP Sys/Stanton Pulse Ox Last 24 Hr 97.5 F-98.3 F 59-92 16-28 140-153/72-89 93-96 PHYSICAL EXAM GENERAL: The patient is awake, alert, and fully oriented, in no acute distress. HEAD: Normal with no signs of trauma. EYES: PERRL, extraocular movements intact, sclera anicteric, conjunctiva clear. ENT: Ears normal, nares patent, oropharynx clear without exudates, moist mucous membranes. NECK: Trachea midline, full range of motion, supple. LUNGS: Breath sounds equal, clear to auscultation bilaterally, no wheezes, no crackles, no accessory muscle use. HEART: Regular rate and rhythm, S1, S2 without murmur, rub or gallop. ABDOMEN: Soft, nontender, nondistended, normoactive bowel sounds, no guarding, no rebound, no hepatosplenomegaly, no masses. EXTREMITIES: 2+ pulses, warm, well-perfused, no edema. NEUROLOGICAL: Cranial nerves II through XII grossly intact. Normal speech, gait not observed. PSYCH: Normal mood, normal affect. SKIN: Warm, dry, normal turgor, no rashes or lesions noted. LABS HOSPITAL COURSE: Date of Admission:12/05/18 Date of Discharge: 12/06/18 unsteady gait, appears to be mechanical due to kyphosis, leaning forward contributing to fall Discharge Summary Reason For Visit: SYNCOPE/FALL Current Active Problems Syncope (Acute) Condition: Improved - Instructions Diet, Activity, Other Instructions: Three prescriptions have been sent to your pharmacy. One is for aspirin, one is for ToprolXL, and one is for Lipitor. Take these medications every day as directed. An appointment has been made for you to see Dr. Bermudez, a primary care doctor. It is important that you go to this appointment. Referrals: Servando Bermudez MD [Staff Physician] - Disposition: HOME - Home Medications Comprehensive Discharge Medication List: Ambulatory Orders NK [No Known Home Medication] 01/19/18
[2018-12-06 11:24] VITALS: BP 140/80; PULSE 85; TEMP 98.7
== END 2018-12-06 13:16 | disposition home or self-care (01) | DRG 92 ==
LOC: FER 14:26 → FM/S 17:18 → INTOOBSV 17:18 → UNDOADMOB 17:18 → FM/S 17:19 → OBSVTOIN 12-05 23:28
PROVIDERS: ADMIT Internal Medicine; ATTEND Nurse Practitioner Acute Care
DX: R26.9 Unspecified abnormalities of gait and mobility (principal); I47.1 Supraventricular tachycardia; F03.90 Unspecified dementia, unspecified severity, without behavioral disturbance, psychotic disturbance, mood disturbance, and anxiety; R55 Syncope and collapse; S05.12XA Contusion of eyeball and orbital tissues, left eye, initial encounter; R53.1 Weakness; W19.XXXA Unspecified fall, initial encounter; Y93.9 Activity, unspecified; Y92.89 Other specified places as the place of occurrence of the external cause
CPT/HCPCS: 36415; 70450-TC; 71045-TC-FY; 78452-TC; 80048; 80053; 81003; 81015; 82550; 82607; 82962; 83735; 84100; 84439; 84443; 84484; 85025; 85027; 93005; 93017; 93306-TC; 97116-GP; 97162-GP; 99284-25; A9502; G0378; J1644; J2785

== ENCOUNTER 2019-01-04 12:41 | Inpatient (IN) | payer OTHER ==
--- NOTE | 2019-01-04 13:13 | PDOC ---
History of Present Illness - General Chief Complaint: Altered Mental Status Stated Complaint: BLOOD PRESSURE PROBLEM Time Seen by Provider: 01/04/19 13:01 - History of Present Illness Initial Comments: History limited 2/2 dementia. Mr. Walters is an 78 y/o male with history of dementia and falls, brought in by EMS. He had an appt with Dr. Peter today for PCP f/u, but was lost and ended up at the [facility] residents' clinic with Dr. Jacob. He does not report any complaints at present. States that he was on his way to the hospital, but is not able to elaborate any further. Patient is alert and oriented x3 - able to state his name, the date, and his current locations. He knows his address. Past History - Past Medical History Allergies/Adverse Reactions: Allergies Allergy/AdvReac Type Severity Reaction Status Date / Time No Known Allergies Allergy Verified 12/01/18 14:27 Home Medications: Ambulatory Orders Aspirin [ASA -] 81 mg PO DAILY #30 tab.chew 12/06/18 Atorvastatin Ca [Lipitor] 40 mg PO HS #30 tablet 12/06/18 Metoprolol Succinate [Toprol Xl] 25 mg PO DAILY #30 tab.er.24h 12/06/18 Anemia: No Asthma: No Cancer: No Cardiac Disorders: Yes (H/O IRREGULAR HEARTBEAT X 1) CVA: No COPD: No CHF: No Dementia: No Diabetes: No GI Disorders: No Disorders: No HTN: No Hypercholesterolemia: No Liver Disease: No Seizures: No Thyroid Disease: No - Surgical History Abdominal Surgery: No Appendectomy: No Cardiac Surgery: No Cholecystectomy: No Lung Surgery: No Neurologic Surgery: No Orthopedic Surgery: No - Immunization History Immunization Up to Date: Yes - Psycho Social/Smoking Cessation Hx Smoking History: Never smoked Have you smoked in the past 12 months: No Information on smoking cessation initiated: No Hx Alcohol Use: No Drug/Substance Use Hx: No Substance Use Type: None Hx Substance Use Treatment: No Review of Systems - Review of Systems Able to Perform ROS?: No (limited 2/2 dementia) *Physical Exam - Vital Signs Last Vital Signs Temp Pulse Resp BP Pulse Ox 97.9 F 77 18 146/88 97 01/04/19 12:58 01/04/19 12:58 01/04/19 12:58 01/04/19 12:58 01/04/19 12:58 - Physical Exam Comments: Limited 2/2 dementia GENERAL: Awake, alert, and oriented to person/place/time, in no acute distress_ HEAD: No signs of trauma, normocephalic, atraumatic _ EYES: PERRLA, EOMI, sclera anicteric, conjunctiva clear_ ENT: Hearing grossly normal, nares patent, oropharynx clear without exudates. No uvular deviation. Moist mucosa_ NECK: Normal ROM, supple, no lymphadenopathy, JVD, or masses_ LUNGS: No distress, speaks in full sentences, clear to auscultation bilaterally _ HEART: Regular rate and rhythm, normal S1 and S2, no murmurs appreciated, peripheral pulses normal and equal bilaterally._ ABDOMEN: Soft, nontender, normoactive bowel sounds. No guarding, no rebound. No masses_ EXTREMITIES: Normal inspection, Normal range of motion, no edema. No clubbing or cyanosis_ NEUROLOGICAL: Cranial nerves II through XII grossly intact. Normal speech, normal gait, no focal sensorimotor deficits _ SKIN: Warm, Dry, normal turgor, no rashes or lesions noted_ ED Treatment Course - LABORATORY CBC & Chemistry Diagram: 01/04/19 13:59 01/04/19 13:59 Medical Decision Making - Medical Decision Making 78M with hx of dementia and falls, otherwise unobtainable hx, BIBEMS today after presenting to the wrong primary care clinic. Patient denies any concerns or pain at this time. Obtain CBC, CMP, EKG, trop, CXR, UA/UC, CT head, blood glucose. 01/04/19 1328 EKG shows 73 bpm, left axis deviation, incomplete RBBB, QTc 469 01/04/19 1400 Call placed to next of kin Angelita Walters. She states that patient is her late 's cousin, and she does not know him well. Call placed to senior center/emergency contact - states that he has had several episodes of confusion, getting lost, and falls. They offered him a ride to his doctor's appt today but patient wanted to take the train. Call placed to Dr. Peter's office - he has seen the patient a couple times over the past month. At PCP's office, patient's MMSe was 29/30, but per PCP something is "missing". patient is not aware that he has a skilled nursing facility counselor send meals to his home, and thinks "food just shows up." 01/04/19 16:00 CT shows no acute intracranial pathology. Labs reviewed and wnl. Discussed with the hospitalist who agrees to accept the patient for admission and placement. Discharge - Discharge Information Problems reviewed: Yes Clinical Impression/Diagnosis: Altered mental status Qualifiers: Altered mental status type: unspecified Qualified Code(s): R41.82 - Altered mental status, unspecified - Admission Yes - Follow up/Referral - Patient Discharge Instructions - Post Discharge Activity
[2019-01-04 14:10] LABS: BASO % 1.1 % (0-2.0); HEMOGLOBIN 16.9 GM/dL (11.7-16.9); LYMPH % 18.9 % (8-40); MCH 31.6 pg (25.7-33.7); MCHC 33.8 g/dl (32.0-35.9); MEAN CELL VOLUME 93.5 fl (80-96); MEAN PLT VOLUME 8.6 fl (7.5-11.1); MONO % 9.8 % (3.8-10.2); NEUT % 67.2 % (42.8-82.8); PLATELET COUNT 198 K/MM3 (134-434); RBC 5.35 M/mm3 (4.00-5.60); RDW 13.7 % (11.9-15.9); WHITE BLOOD COUNT 6.7 K/mm3 (4.0-10.0)
[2019-01-04 14:36] LABS: URINE APPEARANCE CLEAR; URINE BILIRUBIN NEGATIVE (NEGATIVE); URINE COLOR YELLOW; URINE GLUCOSE (UA) NEGATIVE (NEGATIVE); URINE KETONE NEGATIVE (NEGATIVE); URINE LEUK ESTERASE NEGATIVE (NEGATIVE); URINE NITRITE NEGATIVE (NEGATIVE); URINE PROTEIN NEGATIVE (NEGATIVE); URINE UROBILINOGEN 0.2 mg/dL (0.2-1.0)
[2019-01-04 14:37] LABS: ALBUMIN 3.8 g/dl (3.4-5.0); BILIRUBIN,TOTAL 0.6 mg/dL (0.2-1); CALCIUM 9.3 mg/dL (8.5-10.1); POTASSIUM 4.8 mmol/L (3.5-5.1); TOT PROT 7.4 g/dl (6.4-8.2)
[2019-01-04] MEDS ORDERED: THIAMINE HCL 100 MG TABLET (FP) PO ONE (16:47)
--- NOTE | 2019-01-04 16:55 | PDOC ---
Attending Attestation - Resident Resident Name: AcostaLuis - ED Attending Attestation I have performed the following: I have examined & evaluated the patient, The case was reviewed & discussed with the resident, I agree w/resident's findings & plan, Exceptions are as noted - HPI HPI: 01/04/19 16:56 78 years old with past medical history significant for dementia falls high cholesterol hypertension presents to the ED with worsening Alexa altered mental status patient has been found wandering presenting to the wrong doctor's appointment more and more confused ROS: A complete review of 10 out of 10 review of systems is taken and is negative apart from what is previously mentioned below and in the HPI. - Physicial Exam PE: 01/04/19 16:56 Vitals: Triage Vital signs reviewed General Appearance: No acute distress, well nourished well developed, Head: Atraumatic, Cardiac: Regular rate and rhythym, no murmurs, no rubs, no gallops, Lungs: Clear to auscultation bilateral, good air movement bilaterally, Abdomen: Soft, non distended, normal bowel sounds, non tender to palpation Genitourinary: Rectal: Exam deferred Extremities: Full range of motion to all extremities, no cyanosis, clubbing, or edema Skin: Warm and dry, no rashes or lesions, no rash, no petechiae Neuro: strength intact to all extremities, sensation intact to all extremities, gait normal Psych: Normal mood, normal affect - Medical Decision Making 01/04/19 16:57 Worsening dementia found wandering at the wrong box appointment concern for patient safety patient lives at home does not have appropriate services at home patient will require admission secondary to altered mental status worsening dementia versus delirium given unsafe home situation Heart Score/ECG Review - ECG Impressions Comment:: 01/04/19 16:58 EKG performed at 1328 demonstrates normal sinus rhythm left axis deviation no ST elevations no T wave inversions. Interpreted by me.
--- NOTE | 2019-01-04 17:13 | HP ---
CHIEF COMPLAINT: Confusion PCP: Dr. Peter HISTORY OF PRESENT ILLNESS: History obtained from chart and patient due to patient's ability is a poor historian. 78 M with no PMH who presents today from the [facility] resident clinic with altered mental status. He states that woke up today and went out to check on something and then ended up here. He did not report any falls, no headache, dizziness, no chest pain, no shortness of breath, no abdominal pain, and no weakness. According to his emergency contact he had several episodes of confusion, getting lost and falls. He was last at [facility] for a mechanical fall. ER course was notable for: (1)Upon arriving to the ED he was seen to be hypertensive at 146/88. He had an EKG done which showed incomplete right bundle branch block, NSR, with left axis deviation. (2)Head CT was completed with showed no evidence of acute intracranial hemorrhage, edema, midline shift, mass effect, skull fracture, no evidence of acute territorial infarct. Chest X-ray was completed which showed no changes compared to prior Chest X-Ray. (3)Urine culture was obtained. Recent Travel: Unable to determine PAST MEDICAL HISTORY: Denies PAST SURGICAL HISTORY: Denies Social History: Smoking:Denies Alcohol:Denies Drugs: Denies Allergies No Known Allergies Allergy (Verified 12/01/18 14:27) HOME MEDICATIONS: Home Medications Medication Instructions Recorded Aspirin [ASA -] 81 mg PO DAILY #30 tab.chew 12/06/18 Atorvastatin Ca [Lipitor] 40 mg PO HS #30 tablet 12/06/18 Metoprolol Succinate [Toprol Xl] 25 mg PO DAILY #30 tab.er.24h 12/06/18 REVIEW OF SYSTEMS In addition to above CONSTITUTIONAL: Absent: fever, chills, diaphoresis, generalized weakness, malaise, loss of appetite, weight change HEENT: Absent: rhinorrhea, nasal congestion, throat pain, throat swelling, difficulty swallowing, mouth swelling, ear pain, eye pain, visual changes CARDIOVASCULAR: Absent: chest pain, syncope, palpitations, irregular heart rate, lightheadedness , peripheral edema RESPIRATORY: Absent: cough, shortness of breath, dyspnea with exertion, orthopnea, wheezing, stridor, hemoptysis GASTROINTESTINAL: Absent: abdominal pain, abdominal distension, nausea, vomiting, diarrhea, constipation, melena, hematochezia GENITOURINARY: Absent: dysuria, frequency, urgency, hesitancy, hematuria, flank pain, genital pain MUSCULOSKELETAL: Absent: myalgia, arthralgia, joint swelling, back pain, neck pain SKIN: Absent: rash, itching, pallor HEMATOLOGIC/IMMUNOLOGIC: Absent: easy bleeding, easy bruising, lymphadenopathy, frequent infections ENDOCRINE: Absent: unexplained weight gain, unexplained weight loss, heat intolerance, cold intolerance NEUROLOGIC: Absent: headache, focal weakness or paresthesias, dizziness, unsteady gait, seizure, mental status changes, bladder or bowel incontinence PSYCHIATRIC: Absent: anxiety, depression, suicidal or homicidal ideation, hallucinations. PHYSICAL EXAMINATION Vital Signs - 24 hr 01/04/19 01/04/19 12:58 13:03 Temperature 97.9 F Pulse Rate 77 Respiratory 18 Rate Blood Pressure 146/88 O2 Sat by Pulse 97 98 Oximetry (%) GENERAL: AAOx3, in no acute distress. Mental Status Exam: 28/30. Unkempt and poor hygiene. HEAD: Normal with no signs of trauma. EYES: Pupils equal, round and reactive to light, extraocular movements intact, sclera anicteric, conjunctiva clear. EARS, NOSE, THROAT: Ears normal, nares patent, oropharynx clear without exudates. Moist mucous membranes. NECK: Normal range of motion, supple without lymphadenopathy, JVD, or masses. LUNGS: Breath sounds equal, clear to auscultation bilaterally. No wheezes, and no crackles. HEART: Regular rate and rhythm, normal S1 and S2 without murmur, rub or gallop. ABDOMEN: Soft, nontender, not distended, normoactive bowel sounds, no guarding, no rebound, no masses. MUSCULOSKELETAL: Normal range of motion at all joints. UPPER EXTREMITIES: 2+ pulses, warm, well-perfused. No cyanosis. No clubbing. No peripheral edema. LOWER EXTREMITIES: 2+ pulses, warm, well-perfused. NEUROLOGICAL: Cranial nerves II-XII intact. Normal speech. Normal gait. Sensation grossly intact. PSYCHIATRIC: Cooperative. Good eye contact. Appropriate affect. SKIN: Normal capillary refill. Laboratory Results - last 24 hr 01/04/19 01/04/19 01/04/19 13:59 13:59 13:59 WBC 6.7 RBC 5.35 Hgb 16.9 Hct 50.0 H MCV 93.5 MCH 31.6 MCHC 33.8 RDW 13.7 Plt Count 198 MPV 8.6 D Absolute Neuts (auto) 4.5 Neutrophils % 67.2 Lymphocytes % 18.9 D Monocytes % 9.8 Eosinophils % 3.0 Basophils % 1.1 Nucleated RBC % 0 Sodium 141 Potassium 4.8 Chloride 105 Carbon Dioxide 28 Anion Gap 8 BUN 14.0 Creatinine 1.0 Est GFR (CKD-EPI)AfAm 82.02 Est GFR (CKD-EPI)NonAf 70.77 POC Glucometer Random Glucose 87 Calcium 9.3 Total Bilirubin 0.6 AST 18 ALT 16 Alkaline Phosphatase 87 Creatine Kinase 95 Troponin I < 0.02 Total Protein 7.4 Albumin 3.8 Urine Color Urine Appearance Urine pH Ur Specific [place] Urine Protein Urine Glucose (UA) Urine Ketones Urine Blood Urine Nitrite Urine Bilirubin Urine Urobilinogen Ur Leukocyte Esterase 01/04/19 01/04/19 14:15 14:19 WBC RBC Hgb Hct MCV MCH MCHC RDW Plt Count MPV Absolute Neuts (auto) Neutrophils % Lymphocytes % Monocytes % Eosinophils % Basophils % Nucleated RBC % Sodium Potassium Chloride Carbon Dioxide Anion Gap BUN Creatinine Est GFR (CKD-EPI)AfAm Est GFR (CKD-EPI)NonAf POC Glucometer 86 Random Glucose Calcium Total Bilirubin AST ALT Alkaline Phosphatase Creatine Kinase Troponin I Total Protein Albumin Urine Color Yellow Urine Appearance Clear Urine pH 6.0 Ur Specific [place] 1.021 Urine Protein Negative Urine Glucose (UA) Negative Urine Ketones Negative Urine Blood Negative Urine Nitrite Negative Urine Bilirubin Negative Urine Urobilinogen 0.2 Ur Leukocyte Esterase Negative ASSESSMENT/PLAN: 78 M with no PMH who presents to the ED with altered mental status likely secondary to worsening dementia. 1) Dementia -History of visits to [facility] under similar circumstances. -Thiamine 100 mg PO Qdaily -F/U with Dr. Peter to confirm diagnosis of dementia and social assessment -Vitamin B12 levels -Folate levels -Magnesium levels -Phosphorous levels -TSH levels -Potential malingering in order to have home for the day, patient is unkempt and has several bags of clothes with him, but low likelihood as patient has had similar episodes of confusion to visits with Dr. Peter (PCP) 2) HTN -Metropolol Succinate 25 mg PO Qdaily 3) HLD -Atorvastatin 40 mg HS DVT prophylaxis: Enoxaparin 40 mg QDaily Dispo: Admit to medicine Visit type - Emergency Visit Emergency Visit: Yes ED Registration Date: 01/04/19 Care time: The patient presented to the Emergency Department on the above date and was hospitalized for further evaluation of their emergent condition. - New Patient This patient is new to me today: Yes Date on this admission: 01/04/19 - Critical Care Critical Care patient: No ATTENDING PHYSICIAN STATEMENT I saw and evaluated the patient. I reviewed the resident's note and discussed the case with the resident. I agree with the resident's findings and plan as documented. SUBJECTIVE: OBJECTIVE: ASSESSMENT AND PLAN:
[2019-01-04 17:43] VITALS: BMI 27.5
--- NOTE | 2019-01-04 18:33 | PN ---
Teaching Attending Note Name of Resident: Jordon Glez ATTENDING PHYSICIAN STATEMENT I saw and evaluated the patient. I reviewed the resident's note and discussed the case with the resident. I agree with the resident's findings and plan as documented. SUBJECTIVE: History obtained from chart and patient due to patient's ability is a poor historian. Patient is an 78yo male with PMHx who presents today from the [facility] resident clinic with altered mental status, as per dr. at the clinic he was having episodes of confusion, getting lost and wandering around and falls. Patient lives by himself and has no close family member. OBJECTIVE: Vital Signs Temperature 97.6 F 01/04/19 17:21 Pulse Rate 88 01/04/19 17:21 Respiratory Rate 18 01/04/19 17:21 Blood Pressure 143/98 01/04/19 17:21 O2 Sat by Pulse Oximetry (%) 99 01/04/19 17:52 GENERAL: The patient is awake, but disoriented x 2 , in NAD . HEAD: Normal with no signs of trauma. EYES: PERRL, extraocular movements intact, sclera anicteric, conjunctiva clear. ENT: Ears normal, oropharynx clear without exudates, moist mucous membranes. NECK: Trachea midline, full range of motion, supple. LUNGS: Breath sounds equal, clear to auscultation bilaterally, no wheezes, no crackles, no accessory muscle use. HEART: Regular rate and rhythm, S1, S2 without murmur, rub or gallop. ABDOMEN: Soft, NT, ND, normoactive bowel sounds, no guarding, no rebound, no hepatosplenomegaly, no masses. EXTREMITIES: 2+ pulses, warm, well-perfused, no edema. NEUROLOGICAL: Cranial nerves II through XII grossly intact. Normal speech, gait not observed. PSYCH: Normal mood, normal affect. SKIN: Warm, dry, normal turgor, no rashes or lesions noted CBCD WBC 6.7 K/mm3 (4.0-10.0) 01/04/19 13:59 RBC 5.35 M/mm3 (4.00-5.60) 01/04/19 13:59 Hgb 16.9 GM/dL (11.7-16.9) 01/04/19 13:59 Hct 50.0 % (35.4-49) H 01/04/19 13:59 MCV 93.5 fl (80-96) 01/04/19 13:59 MCHC 33.8 g/dl (32.0-35.9) 01/04/19 13:59 RDW 13.7 % (11.9-15.9) 01/04/19 13:59 Plt Count 198 K/MM3 (134-434) 01/04/19 13:59 MPV 8.6 fl (7.5-11.1) D 01/04/19 13:59 CMP Sodium 141 mmol/L (136-145) 01/04/19 13:59 Potassium 4.8 mmol/L (3.5-5.1) 01/04/19 13:59 Chloride 105 mmol/L (98-107) 01/04/19 13:59 Carbon Dioxide 28 mmol/L (21-32) 01/04/19 13:59 Anion Gap 8 MMOL/L (8-16) 01/04/19 13:59 BUN 14.0 mg/dL (7-18) 01/04/19 13:59 Creatinine 1.0 mg/dL (0.55-1.3) 01/04/19 13:59 Random Glucose 87 mg/dL (74-106) 01/04/19 13:59 Calcium 9.3 mg/dL (8.5-10.1) 01/04/19 13:59 Total Bilirubin 0.6 mg/dL (0.2-1) 01/04/19 13:59 AST 18 U/L (15-37) 01/04/19 13:59 ALT 16 U/L (13-61) 01/04/19 13:59 Alkaline Phosphatase 87 U/L (45-117) 01/04/19 13:59 Total Protein 7.4 g/dl (6.4-8.2) 01/04/19 13:59 Albumin 3.8 g/dl (3.4-5.0) 01/04/19 13:59 CARDIAC ENZYMES Creatine Kinase 95 U/L (26-308) 01/04/19 13:59 Troponin I < 0.02 ng/ml (0.00-0.05) 01/04/19 13:59 Current Medications Generic Name Dose Route Start Last Admin Trade Name Tommieq PRN Reason Stop Dose Admin Aspirin 81 mg 01/05/19 10:00 Asa - PO DAILY [facility] Atorvastatin Calcium 40 mg 01/04/19 22:00 Lipitor - PO HS MARISSA Enoxaparin Sodium 40 mg 01/05/19 10:00 Lovenox - SQ DAILY [facility] Metoprolol Succinate 25 mg 01/05/19 10:00 Toprol Xl - PO DAILY [facility] Thiamine HCl 100 mg 01/05/19 10:00 Vitamin B1 - PO DAILY [facility] Home Medications Medication Instructions Recorded Aspirin [ASA -] 81 mg PO DAILY #30 tab.chew 12/06/18 Atorvastatin Ca [Lipitor] 40 mg PO HS #30 tablet 12/06/18 Metoprolol Succinate [Toprol Xl] 25 mg PO DAILY #30 tab.er.24h 12/06/18 CT of the head: no acute pathology CXR: negative ASSESSMENT AND PLAN: Patient is an 78yo male with no PMHx who presents to the ED with altered mental status likely secondary to worsening dementia. # Acute change of mental status with worsening of Dementia #HTN: Metropolol Succinate 25 mg PO Qdaily #HLD: Atorvastatin 40 mg HS DVT prophylaxis: Enoxaparin 40 mg QDaily
[2019-01-04] MEDS: ATORVASTATIN CA 40 MG TABLET (FP) PO SCH (21:52)
[2019-01-05] MEDS: ENOXAPARIN NA (PORCINE) 40 MG/0.4 ML DISP.SYRIN SQ SCH (09:32)
[2019-01-05] MEDS: metoPROLOL SUCCINATE 25 MG TAB.SR.24H (FP) PO SCH (09:32)
[2019-01-05] MEDS: THIAMINE HCL 100 MG TABLET (FP) PO SCH (09:32)
[2019-01-05] MEDS: ASPIRIN 81 MG CHEWABLE TABLETS PO SCH (09:32)
--- NOTE | 2019-01-05 11:13 | PN ---
Progress Note (short form) - Note Progress Note: Patient is comfortable with no acute distress. Vital Signs Temperature 97.6 F 01/05/19 05:00 Pulse Rate 77 01/05/19 05:00 Respiratory Rate 20 01/05/19 05:00 Blood Pressure 161/103 H 01/05/19 05:00 O2 Sat by Pulse Oximetry (%) 100 01/04/19 21:00 GENERAL: The patient is awake, but disoriented x 2 , in NAD . HEAD: Normal with no signs of trauma. EYES: PERRL, extraocular movements intact, sclera anicteric, conjunctiva clear. ENT: Ears normal, oropharynx clear without exudates, moist mucous membranes. NECK: Trachea midline, full range of motion, supple. LUNGS: Breath sounds equal, clear to auscultation bilaterally, no wheezes, no crackles, no accessory muscle use. HEART: Regular rate and rhythm, S1, S2 without murmur, rub or gallop. ABDOMEN: Soft, NT, ND, normoactive bowel sounds, no guarding, no rebound, no hepatosplenomegaly, no masses. EXTREMITIES: 2+ pulses, warm, well-perfused, no edema. NEUROLOGICAL: Cranial nerves II through XII grossly intact. Normal speech, gait not observed. PSYCH: Normal mood, normal affect. SKIN: Warm, dry, normal turgor, no rashes or lesions noted CBCD WBC 6.7 K/mm3 (4.0-10.0) 01/04/19 13:59 RBC 5.35 M/mm3 (4.00-5.60) 01/04/19 13:59 Hgb 16.9 GM/dL (11.7-16.9) 01/04/19 13:59 Hct 50.0 % (35.4-49) H 01/04/19 13:59 MCV 93.5 fl (80-96) 01/04/19 13:59 MCHC 33.8 g/dl (32.0-35.9) 01/04/19 13:59 RDW 13.7 % (11.9-15.9) 01/04/19 13:59 Plt Count 198 K/MM3 (134-434) 01/04/19 13:59 MPV 8.6 fl (7.5-11.1) D 01/04/19 13:59 CMP Sodium 141 mmol/L (136-145) 01/04/19 13:59 Potassium 4.8 mmol/L (3.5-5.1) 01/04/19 13:59 Chloride 105 mmol/L (98-107) 01/04/19 13:59 Carbon Dioxide 28 mmol/L (21-32) 01/04/19 13:59 Anion Gap 8 MMOL/L (8-16) 01/04/19 13:59 BUN 14.0 mg/dL (7-18) 01/04/19 13:59 Creatinine 1.0 mg/dL (0.55-1.3) 01/04/19 13:59 Random Glucose 87 mg/dL (74-106) 01/04/19 13:59 Calcium 9.3 mg/dL (8.5-10.1) 01/04/19 13:59 Total Bilirubin 0.6 mg/dL (0.2-1) 01/04/19 13:59 AST 18 U/L (15-37) 01/04/19 13:59 ALT 16 U/L (13-61) 01/04/19 13:59 Alkaline Phosphatase 87 U/L (45-117) 01/04/19 13:59 Total Protein 7.4 g/dl (6.4-8.2) 01/04/19 13:59 Albumin 3.8 g/dl (3.4-5.0) 01/04/19 13:59 CARDIAC ENZYMES Creatine Kinase 95 U/L (26-308) 01/04/19 13:59 Troponin I < 0.02 ng/ml (0.00-0.05) 01/04/19 13:59 Current Medications Generic Name Dose Route Start Last Admin Trade Name Tommieq PRN Reason Stop Dose Admin Aspirin 81 mg 01/05/19 10:00 01/05/19 09:32 Asa - PO 81 mg DAILY MARISSA Administration Atorvastatin Calcium 40 mg 01/04/19 22:00 01/04/19 21:52 Lipitor - PO 40 mg HS MARISSA Administration Enoxaparin Sodium 40 mg 01/05/19 10:00 01/05/19 09:32 Lovenox - SQ 40 mg DAILY MARISSA Administration Metoprolol Succinate 25 mg 01/05/19 10:00 01/05/19 09:32 Toprol Xl - PO 25 mg DAILY MARISSA Administration Thiamine HCl 100 mg 01/05/19 10:00 01/05/19 09:32 Vitamin B1 - PO 100 mg DAILY MARISSA Administration Home Medications Medication Instructions Recorded Aspirin [ASA -] 81 mg PO DAILY #30 tab.chew 12/06/18 Atorvastatin Ca [Lipitor] 40 mg PO HS #30 tablet 12/06/18 Metoprolol Succinate [Toprol Xl] 25 mg PO DAILY #30 tab.er.24h 12/06/18 ASSESSMENT AND PLAN: Patient is an 78yo male with no PMHx who presents to the ED with altered mental status likely secondary to worsening dementia. # Acute change of mental status with worsening of Dementia, neuro and pscy. consult appreciated #HTN: Metropolol Succinate 25 mg PO Qdaily continue #HLD: Atorvastatin 40 mg HS DVT prophylaxis: Enoxaparin 40 mg QDaily Visit type - Emergency Visit Emergency Visit: Yes ED Registration Date: 01/04/19 Care time: The patient presented to the Emergency Department on the above date and was hospitalized for further evaluation of their emergent condition. - New Patient This patient is new to me today: No - Critical Care Critical Care patient: No - Discharge Referral Referred to [facility] No
--- NOTE | 2019-01-05 12:04 | CONSULT ---
Consult - text type - Consultation Consultation Note: Neurology CHIEF COMPLAINT: Confusion PCP: Dr. Peter HISTORY OF PRESENT ILLNESS: 78 M with no PMH who presented on day of admission from the [facility] resident clinic with altered mental status. He states that woke up day of admission and went out to check on something and then ended up here. He did not report any falls, no headache, dizziness, no chest pain, no shortness of breath, no abdominal pain, and no weakness. According to his emergency contact he had several episodes of confusion, getting lost and falls. He was last at [facility] for a mechanical fall. Upon arriving to the ED he was seen to be hypertensive at 146 /88. He had an EKG done which showed incomplete right bundle branch block, NSR, with left axis deviation. Head CT was completed with showed no evidence of acute intracranial hemorrhage, edema, midline shift, mass effect, skull fracture , no evidence of acute territorial infarct. Chest X-ray was completed which showed no changes compared to prior Chest X-Ray. Patient currently on 81mg aspirin and 40mg statin. Patient is known to me from last admission in November and appears near baseline. Is able to tell me he's at [facility] as well as month and year. Nurse mentioned mental status can wax and wane. Recent Travel: Unable to determine PAST MEDICAL HISTORY: Denies PAST SURGICAL HISTORY: Denies Social History: Smoking:Denies Alcohol:Denies Drugs: Denies FAMILY HISTORY No Known History Allergies No Known Allergies Allergy (Verified 12/01/18 14:27) HOME MEDICATIONS: Home Medications Medication Instructions Recorded Aspirin [ASA -] 81 mg PO DAILY #30 tab.chew 12/06/18 Atorvastatin Ca [Lipitor] 40 mg PO HS #30 tablet 12/06/18 Metoprolol Succinate [Toprol Xl] 25 mg PO DAILY #30 tab.er.24h 12/06/18 REVIEW OF SYSTEMS In addition to above CONSTITUTIONAL: Absent: fever, chills, diaphoresis, generalized weakness, malaise, loss of appetite, weight change HEENT: Absent: rhinorrhea, nasal congestion, throat pain, throat swelling, difficulty swallowing, mouth swelling, ear pain, eye pain, visual changes CARDIOVASCULAR: Absent: chest pain, syncope, palpitations, irregular heart rate, lightheadedness , peripheral edema RESPIRATORY: Absent: cough, shortness of breath, dyspnea with exertion, orthopnea, wheezing, stridor, hemoptysis GASTROINTESTINAL: Absent: abdominal pain, abdominal distension, nausea, vomiting, diarrhea, constipation, melena, hematochezia GENITOURINARY: Absent: dysuria, frequency, urgency, hesitancy, hematuria, flank pain, genital pain MUSCULOSKELETAL: Absent: myalgia, arthralgia, joint swelling, back pain, neck pain SKIN: Absent: rash, itching, pallor HEMATOLOGIC/IMMUNOLOGIC: Absent: easy bleeding, easy bruising, lymphadenopathy, frequent infections ENDOCRINE: Absent: unexplained weight gain, unexplained weight loss, heat intolerance, cold intolerance NEUROLOGIC: Absent: headache, focal weakness or paresthesias, dizziness, unsteady gait, seizure, mental status changes, bladder or bowel incontinence PSYCHIATRIC: Absent: anxiety, depression, suicidal or homicidal ideation, hallucinations. PHYSICAL EXAMINATION Vital Signs Period Temp Pulse Resp BP Sys/Stanton Pulse Ox Last 24 Hr 97.3 F-97.9 F 77-94 18-20 143-161/88-103 97-100 GENERAL: AAOx3, in no acute distress. Mental Status Exam: . Unkempt and poor hygiene. HEAD: Normal with no signs of trauma. EYES: Pupils equal, round and reactive to light, extraocular movements intact, sclera anicteric, conjunctiva clear. EARS, NOSE, THROAT: Ears normal, nares patent, oropharynx clear without exudates. Moist mucous membranes. NECK: Normal range of motion, supple without lymphadenopathy, JVD, or masses. LUNGS: Breath sounds equal, clear to auscultation bilaterally. No wheezes, and no crackles. HEART: Regular rate and rhythm, normal S1 and S2 without murmur, rub or gallop. ABDOMEN: Soft, nontender, not distended, normoactive bowel sounds, no guarding, no rebound, no masses. MUSCULOSKELETAL: Normal range of motion at all joints. UPPER EXTREMITIES: 2+ pulses, warm, well-perfused. No cyanosis. No clubbing. No peripheral edema. LOWER EXTREMITIES: 2+ pulses, warm, well-perfused. NEUROLOGICAL: Cranial nerves II-XII intact. Normal speech. Normal gait. Sensation grossly intact. PSYCHIATRIC: Cooperative. Good eye contact. Appropriate affect. SKIN: Normal capillary refill. CBCD WBC 6.7 K/mm3 (4.0-10.0) 01/04/19 13:59 RBC 5.35 M/mm3 (4.00-5.60) 01/04/19 13:59 Hgb 16.9 GM/dL (11.7-16.9) 01/04/19 13:59 Hct 50.0 % (35.4-49) H 01/04/19 13:59 MCV 93.5 fl (80-96) 01/04/19 13:59 MCHC 33.8 g/dl (32.0-35.9) 01/04/19 13:59 RDW 13.7 % (11.9-15.9) 01/04/19 13:59 Plt Count 198 K/MM3 (134-434) 01/04/19 13:59 MPV 8.6 fl (7.5-11.1) D 01/04/19 13:59 CMP Sodium 141 mmol/L (136-145) 01/04/19 13:59 Potassium 4.8 mmol/L (3.5-5.1) 01/04/19 13:59 Chloride 105 mmol/L (98-107) 01/04/19 13:59 Carbon Dioxide 28 mmol/L (21-32) 01/04/19 13:59 Anion Gap 8 MMOL/L (8-16) 01/04/19 13:59 BUN 14.0 mg/dL (7-18) 01/04/19 13:59 Creatinine 1.0 mg/dL (0.55-1.3) 01/04/19 13:59 Random Glucose 87 mg/dL (74-106) 01/04/19 13:59 Calcium 9.3 mg/dL (8.5-10.1) 01/04/19 13:59 Total Bilirubin 0.6 mg/dL (0.2-1) 01/04/19 13:59 AST 18 U/L (15-37) 01/04/19 13:59 ALT 16 U/L (13-61) 01/04/19 13:59 Alkaline Phosphatase 87 U/L (45-117) 01/04/19 13:59 Total Protein 7.4 g/dl (6.4-8.2) 01/04/19 13:59 Albumin 3.8 g/dl (3.4-5.0) 01/04/19 13:59 CARDIAC ENZYMES Creatine Kinase 95 U/L (26-308) 01/04/19 13:59 Troponin I < 0.02 ng/ml (0.00-0.05) 01/04/19 13:59 ASSESSMENT/PLAN: 78 M with no PMH who presented on day of admission from the [facility] resident clinic with altered mental status. He states that woke up day of admission and went out to check on something and then ended up here. He did not report any falls, no headache, dizziness, no chest pain, no shortness of breath, no abdominal pain, and no weakness. According to his emergency contact he had several episodes of confusion, getting lost and falls. He was last at [facility] for a mechanical fall. Upon arriving to the ED he was seen to be hypertensive at 146 /88. He had an EKG done which showed incomplete right bundle branch block, NSR, with left axis deviation. Head CT was completed with showed no evidence of acute intracranial hemorrhage, edema, midline shift, mass effect, skull fracture , no evidence of acute territorial infarct. Chest X-ray was completed which showed no changes compared to prior Chest X-Ray. Patient currently on 81mg aspirin and 40mg statin. Patient is known to me from last admission in November and appears near baseline. Is able to tell me he's at [facility] as well as month and year. Nurse mentioned mental status can wax and wane. Do not feel he needs MRI as no focal deficits and mental status seems near baseline during my encounter. Would optimize medically, maintain adequate hydration and Po intake. Conitnue reorientation if needed though seems well oriented now. Will monitor.
[2019-01-05] MEDS ORDERED: diphenhydrAMINE HCL 25 MG CAPSULE (FP) PO ONE (14:46)
--- NOTE | 2019-01-05 14:52 | EKG ---
Test Reason : Blood Pressure : / mmHG Vent. Rate : 073 BPM Atrial Rate : 073 BPM P-R Int : 148 ms QRS Dur : 094 ms QT Int : 426 ms P-R-T Axes : 055 -56 092 degrees QTc Int : 469 ms NORMAL SINUS RHYTHM WITH SINUS ARRHYTHMIA LEFT AXIS DEVIATION INCOMPLETE RIGHT BUNDLE BRANCH BLOCK MINIMAL VOLTAGE CRITERIA FOR LVH, MAY BE NORMAL VARIANT T WAVE ABNORMALITY, CONSIDER LATERAL ISCHEMIA ABNORMAL ECG WHEN COMPARED WITH ECG OF 01-DEC-2018 15:43, NO SIGNIFICANT CHANGE WAS FOUND Confirmed by GABBY RESENDIZ, SELENA ([id number]) on 01/05/2019 2:51:55 PM Referred By: Confirmed By:SELENA PIERRE MD
[2019-01-05] MEDS: ATORVASTATIN CA 40 MG TABLET (FP) PO SCH (21:09)
[2019-01-06] MEDS: metoPROLOL SUCCINATE 25 MG TAB.SR.24H (FP) PO SCH (10:08)
[2019-01-06] MEDS: ASPIRIN 81 MG CHEWABLE TABLETS PO SCH (10:08)
[2019-01-06] MEDS: THIAMINE HCL 100 MG TABLET (FP) PO SCH (10:09)
[2019-01-06] MEDS: ENOXAPARIN NA (PORCINE) 40 MG/0.4 ML DISP.SYRIN SQ SCH (10:09)
--- NOTE | 2019-01-06 12:58 | PN ---
Progress Note (short form) - Note Progress Note: Neurology CHIEF COMPLAINT: Confusion PCP: Dr. Peter HISTORY OF PRESENT ILLNESS: 78 M with no PMH who presented on day of admission from the [facility] resident clinic with altered mental status. He states that woke up day of admission and went out to check on something and then ended up here. He did not report any falls, no headache, dizziness, no chest pain, no shortness of breath, no abdominal pain, and no weakness. According to his emergency contact he had several episodes of confusion, getting lost and falls. He was last at [facility] for a mechanical fall. Upon arriving to the ED he was seen to be hypertensive at 146 /88. He had an EKG done which showed incomplete right bundle branch block, NSR, with left axis deviation. Head CT was completed with showed no evidence of acute intracranial hemorrhage, edema, midline shift, mass effect, skull fracture , no evidence of acute territorial infarct. Chest X-ray was completed which showed no changes compared to prior Chest X-Ray. Patient currently on 81mg aspirin and 40mg statin. Patient is known to me from last admission in November and appears near baseline. Is able to tell me he's at [facility] as well as month and year. Nurse mentioned mental status can wax and wane. Able to also tell me name of President. Supposedly more confused at night per nursing. Picture seems more delirium like with changes in mental status. Will add aricept to see if any benefit. Active Medications Aspirin (Asa -) 81 mg PO DAILY [facility] Last Admin: 01/06/19 10:08 Dose: 81 mg Atorvastatin Calcium (Lipitor -) 40 mg PO HS [facility] Last Admin: 01/05/19 21:09 Dose: 40 mg Enoxaparin Sodium (Lovenox -) 40 mg SQ DAILY [facility] Last Admin: 01/06/19 10:09 Dose: 40 mg Metoprolol Succinate (Toprol Xl -) 25 mg PO DAILY [facility] Last Admin: 01/06/19 10:08 Dose: 25 mg Thiamine HCl (Vitamin B1 -) 100 mg PO DAILY [facility] Last Admin: 01/06/19 10:09 Dose: 100 mg PHYSICAL EXAMINATION Vital Signs Period Temp Pulse Resp BP Sys/Stanton Pulse Ox Last 24 Hr 98.1 F-98.6 F 63-88 19-20 123-160/87-92 95 GENERAL: AAOx3, in no acute distress. Mental Status Exam: . Unkempt and poor hygiene. HEAD: Normal with no signs of trauma. EYES: Pupils equal, round and reactive to light, extraocular movements intact, sclera anicteric, conjunctiva clear. EARS, NOSE, THROAT: Ears normal, nares patent, oropharynx clear without exudates. Moist mucous membranes. NECK: Normal range of motion, supple without lymphadenopathy, JVD, or masses. LUNGS: Breath sounds equal, clear to auscultation bilaterally. No wheezes, and no crackles. HEART: Regular rate and rhythm, normal S1 and S2 without murmur, rub or gallop. ABDOMEN: Soft, nontender, not distended, normoactive bowel sounds, no guarding, no rebound, no masses. MUSCULOSKELETAL: Normal range of motion at all joints. UPPER EXTREMITIES: 2+ pulses, warm, well-perfused. No cyanosis. No clubbing. No peripheral edema. LOWER EXTREMITIES: 2+ pulses, warm, well-perfused. NEUROLOGICAL: Cranial nerves II-XII intact. Normal speech. Normal gait. Sensation grossly intact. PSYCHIATRIC: Cooperative. Good eye contact. Appropriate affect. SKIN: Normal capillary refill. CBCD WBC 6.7 K/mm3 (4.0-10.0) 01/04/19 13:59 RBC 5.35 M/mm3 (4.00-5.60) 01/04/19 13:59 Hgb 16.9 GM/dL (11.7-16.9) 01/04/19 13:59 Hct 50.0 % (35.4-49) H 01/04/19 13:59 MCV 93.5 fl (80-96) 01/04/19 13:59 MCHC 33.8 g/dl (32.0-35.9) 01/04/19 13:59 RDW 13.7 % (11.9-15.9) 01/04/19 13:59 Plt Count 198 K/MM3 (134-434) 01/04/19 13:59 MPV 8.6 fl (7.5-11.1) D 01/04/19 13:59 CMP Sodium 141 mmol/L (136-145) 01/04/19 13:59 Potassium 4.8 mmol/L (3.5-5.1) 01/04/19 13:59 Chloride 105 mmol/L (98-107) 01/04/19 13:59 Carbon Dioxide 28 mmol/L (21-32) 01/04/19 13:59 Anion Gap 8 MMOL/L (8-16) 01/04/19 13:59 BUN 14.0 mg/dL (7-18) 01/04/19 13:59 Creatinine 1.0 mg/dL (0.55-1.3) 01/04/19 13:59 Random Glucose 87 mg/dL (74-106) 01/04/19 13:59 Calcium 9.3 mg/dL (8.5-10.1) 01/04/19 13:59 Total Bilirubin 0.6 mg/dL (0.2-1) 01/04/19 13:59 AST 18 U/L (15-37) 01/04/19 13:59 ALT 16 U/L (13-61) 01/04/19 13:59 Alkaline Phosphatase 87 U/L (45-117) 01/04/19 13:59 Total Protein 7.4 g/dl (6.4-8.2) 01/04/19 13:59 Albumin 3.8 g/dl (3.4-5.0) 01/04/19 13:59 CARDIAC ENZYMES Creatine Kinase 95 U/L (26-308) 01/04/19 13:59 Troponin I < 0.02 ng/ml (0.00-0.05) 01/04/19 13:59 ASSESSMENT/PLAN: 78 M with no PMH who presented on day of admission from the [facility] resident clinic with altered mental status. He states that woke up day of admission and went out to check on something and then ended up here. He did not report any falls, no headache, dizziness, no chest pain, no shortness of breath, no abdominal pain, and no weakness. According to his emergency contact he had several episodes of confusion, getting lost and falls. He was last at [facility] for a mechanical fall. Upon arriving to the ED he was seen to be hypertensive at 146 /88. He had an EKG done which showed incomplete right bundle branch block, NSR, with left axis deviation. Head CT was completed with showed no evidence of acute intracranial hemorrhage, edema, midline shift, mass effect, skull fracture , no evidence of acute territorial infarct. Chest X-ray was completed which showed no changes compared to prior Chest X-Ray. Patient currently on 81mg aspirin and 40mg statin. Patient is known to me from last admission in November and appears near baseline. Is able to tell me he's at [facility] as well as month and year. Nurse mentioned mental status can wax and wane. Do not feel he needs MRI as no focal deficits and mental status seems near baseline during my encounter. Would optimize medically, maintain adequate hydration and Po intake. Conitnue reorientation if needed though seems well oriented now. Will start on Aricept 5mg.
[2019-01-06] MEDS: DONEPEZIL HCL 5 MG TABLET (FP) PO SCH (13:26)
--- NOTE | 2019-01-06 15:49 | PN ---
Physical Exam: SUBJECTIVE: Patient seen and examined in the morning. No acute events reported overnight. Denies any chest pain, shortness of breath, abdominal pain, headache. OBJECTIVE: Vital Signs Period Temp Pulse Resp BP Sys/Stanton Pulse Ox Last 24 Hr 98.1 F-98.8 F 63-88 19-20 123-160/74-92 95 GENERAL: The patient is AAOx3 HEAD: Normal with no signs of trauma. EYES: PERRL, extraocular movements intact, sclera anicteric, conjunctiva clear. No ptosis. ENT: Ears normal, nares patent, oropharynx clear without exudates, moist mucous membranes. NECK: Trachea midline, full range of motion, supple. LUNGS: Breath sounds equal, clear to auscultation bilaterally, no wheezes, no crackles, no accessory muscle use. HEART: Regular rate and rhythm, S1, S2 without murmur, rub or gallop. ABDOMEN: Soft, nontender, nondistended, normoactive bowel sounds. EXTREMITIES: 2+ pulses, warm, well-perfused, no edema. NEUROLOGICAL: Cranial nerves II through XII grossly intact. Normal speech. Active Medications Generic Name Dose Route Start Last Admin Trade Name Freq PRN Reason Stop Dose Admin Aspirin 81 mg 01/05/19 10:00 01/06/19 10:08 Asa - PO 81 mg DAILY MARISSA Administration Atorvastatin Calcium 40 mg 01/04/19 22:00 01/05/19 21:09 Lipitor - PO 40 mg HS MARISSA Administration Donepezil HCl 5 mg 01/06/19 13:00 01/06/19 13:26 Aricept - PO 5 mg DAILY MARISAS Administration Enoxaparin Sodium 40 mg 01/05/19 10:00 01/06/19 10:09 Lovenox - SQ 40 mg DAILY MARISSA Administration Metoprolol Succinate 50 mg 01/07/19 10:00 Toprol Xl - PO DAILY MARISSA Thiamine HCl 100 mg 01/05/19 10:00 01/06/19 10:09 Vitamin B1 - PO 100 mg DAILY MARISSA Administration ASSESSMENT/PLAN: 78 M with no PMH who presents to the ED with altered mental status likely secondary to worsening dementia. 1) Dementia -Waxing and waning mental status. -History of visits to [facility] under similar circumstances. -Thiamine 100 mg PO Qdaily -F/U with Dr. Androne to confirm diagnosis of dementia and social assessment -Potential malingering in order to have home for the day, patient is unkempt and has several bags of clothes with him, but low likelihood as patient has had similar episodes of confusion to visits with Dr. Peter (PCP) 2) HTN -Metropolol Succinate 50 mg PO Qdaily 3) HLD -Atorvastatin 40 mg HS DVT prophylaxis: Enoxaparin 40 mg QDaily Dispo: Admit to medicine Visit type - Emergency Visit Emergency Visit: Yes ED Registration Date: 01/04/19 Care time: The patient presented to the Emergency Department on the above date and was hospitalized for further evaluation of their emergent condition. - New Patient This patient is new to me today: Yes Date on this admission: 01/06/19 - Critical Care Critical Care patient: No ATTENDING PHYSICIAN STATEMENT I saw and evaluated the patient. I reviewed the resident's note and discussed the case with the resident. I agree with the resident's findings and plan as documented. SUBJECTIVE: OBJECTIVE: ASSESSMENT AND PLAN:
--- NOTE | 2019-01-06 17:07 | PN ---
Teaching Attending Note Name of Resident: Jordon Glez ATTENDING PHYSICIAN STATEMENT I saw and evaluated the patient. I reviewed the resident's note and discussed the case with the resident. I agree with the resident's findings and plan as documented. SUBJECTIVE: Patient is comfortable with no acute distress. No nausea or vomiting. patient is extremely confused. OBJECTIVE: Vital Signs Temperature 98 F 01/06/19 17:03 Pulse Rate 66 01/06/19 17:03 Respiratory Rate 20 01/06/19 17:03 Blood Pressure 147/99 01/06/19 17:03 O2 Sat by Pulse Oximetry (%) 95 01/06/19 09:00 GENERAL: The patient is awake, but disoriented x 2 , in NAD . HEAD: Normal with no signs of trauma. EYES: PERRL, extraocular movements intact, sclera anicteric, conjunctiva clear. ENT: Ears normal, oropharynx clear without exudates, moist mucous membranes. NECK: Trachea midline, full range of motion, supple. LUNGS: Breath sounds equal, clear to auscultation bilaterally, no wheezes, no crackles, no accessory muscle use. HEART: Regular rate and rhythm, S1, S2 without murmur, rub or gallop. ABDOMEN: Soft, NT, ND, normoactive bowel sounds, no guarding, no rebound, no hepatosplenomegaly, no masses. EXTREMITIES: 2+ pulses, warm, well-perfused, no edema. NEUROLOGICAL: Cranial nerves II through XII grossly intact. Normal speech, gait not observed. PSYCH: Normal mood, normal affect. SKIN: Warm, dry, normal turgor, no rashes or lesions noted CBCD WBC 6.7 K/mm3 (4.0-10.0) 01/04/19 13:59 RBC 5.35 M/mm3 (4.00-5.60) 01/04/19 13:59 Hgb 16.9 GM/dL (11.7-16.9) 01/04/19 13:59 Hct 50.0 % (35.4-49) H 01/04/19 13:59 MCV 93.5 fl (80-96) 01/04/19 13:59 MCHC 33.8 g/dl (32.0-35.9) 01/04/19 13:59 RDW 13.7 % (11.9-15.9) 01/04/19 13:59 Plt Count 198 K/MM3 (134-434) 01/04/19 13:59 MPV 8.6 fl (7.5-11.1) D 01/04/19 13:59 CMP Sodium 141 mmol/L (136-145) 01/04/19 13:59 Potassium 4.8 mmol/L (3.5-5.1) 01/04/19 13:59 Chloride 105 mmol/L (98-107) 01/04/19 13:59 Carbon Dioxide 28 mmol/L (21-32) 01/04/19 13:59 Anion Gap 8 MMOL/L (8-16) 01/04/19 13:59 BUN 14.0 mg/dL (7-18) 01/04/19 13:59 Creatinine 1.0 mg/dL (0.55-1.3) 01/04/19 13:59 Random Glucose 87 mg/dL (74-106) 01/04/19 13:59 Calcium 9.3 mg/dL (8.5-10.1) 01/04/19 13:59 Total Bilirubin 0.6 mg/dL (0.2-1) 01/04/19 13:59 AST 18 U/L (15-37) 01/04/19 13:59 ALT 16 U/L (13-61) 01/04/19 13:59 Alkaline Phosphatase 87 U/L (45-117) 01/04/19 13:59 Total Protein 7.4 g/dl (6.4-8.2) 01/04/19 13:59 Albumin 3.8 g/dl (3.4-5.0) 01/04/19 13:59 CARDIAC ENZYMES Creatine Kinase 95 U/L (26-308) 01/04/19 13:59 Troponin I < 0.02 ng/ml (0.00-0.05) 01/04/19 13:59 Current Medications Generic Name Dose Route Start Last Admin Trade Name Jessica PRN Reason Stop Dose Admin Aspirin 81 mg 01/05/19 10:00 01/06/19 10:08 Asa - PO 81 mg DAILY MARISSA Administration Atorvastatin Calcium 40 mg 01/04/19 22:00 01/05/19 21:09 Lipitor - PO 40 mg HS MARISSA Administration Donepezil HCl 5 mg 01/06/19 13:00 01/06/19 13:26 Aricept - PO 5 mg DAILY MARISSA Administration Enoxaparin Sodium 40 mg 01/05/19 10:00 01/06/19 10:09 Lovenox - SQ 40 mg DAILY MARISSA Administration Metoprolol Succinate 50 mg 01/07/19 10:00 Toprol Xl - PO DAILY [facility]SA Thiamine HCl 100 mg 01/05/19 10:00 01/06/19 10:09 Vitamin B1 - PO 100 mg DAILY MARISSA Administration Home Medications Medication Instructions Recorded Aspirin [ASA -] 81 mg PO DAILY #30 tab.chew 12/06/18 Atorvastatin Ca [Lipitor] 40 mg PO HS #30 tablet 12/06/18 Metoprolol Succinate [Toprol Xl] 25 mg PO DAILY #30 tab.er.24h 12/06/18 ASSESSMENT AND PLAN: Patient is an 78yo male with no PMHx who presents to the ED with altered mental status likely secondary to worsening dementia. # Acute change of mental status with worsening of Dementia, neuro and pschy consult appreciated , neuro added arisept/thiamine continue #HTN: Toprol XL 25 mg PO daily , will increase to 50mg daily , continue aspirin and lipitor as well. #HLD: Atorvastatin 40 mg HS DVT prophylaxis: Enoxaparin 40 mg
[2019-01-06] MEDS: ATORVASTATIN CA 40 MG TABLET (FP) PO SCH (21:04)
[2019-01-07 06:52] LABS: BASO % 1.1 % (0-2.0); HEMATOCRIT 49.7 % (35.4-49); HEMOGLOBIN 16.9 GM/dL (11.7-16.9); LYMPH % 16.2 % (8-40); MCH 31.6 pg (25.7-33.7); MCHC 34.1 g/dl (32.0-35.9); MEAN CELL VOLUME 92.6 fl (80-96); MEAN PLT VOLUME 9.9 fl (7.5-11.1); MONO % 10.6 % (3.8-10.2); NEUT % 69.1 % (42.8-82.8); PLATELET COUNT 185 K/MM3 (134-434); RBC 5.37 M/mm3 (4.00-5.60); RDW 13.6 % (11.9-15.9); WHITE BLOOD COUNT 6.2 K/mm3 (4.0-10.0)
--- NOTE | 2019-01-07 08:56 | PN ---
Progress Note (short form) - Note Progress Note: Neurology CHIEF COMPLAINT: Confusion PCP: Dr. Peter HISTORY OF PRESENT ILLNESS: 78 M with no PMH who presented on day of admission from the [facility] resident clinic with altered mental status. He states that woke up day of admission and went out to check on something and then ended up here. He did not report any falls, no headache, dizziness, no chest pain, no shortness of breath, no abdominal pain, and no weakness. According to his emergency contact he had several episodes of confusion, getting lost and falls. He was last at [facility] for a mechanical fall. Upon arriving to the ED he was seen to be hypertensive at 146 /88. He had an EKG done which showed incomplete right bundle branch block, NSR, with left axis deviation. Head CT was completed with showed no evidence of acute intracranial hemorrhage, edema, midline shift, mass effect, skull fracture , no evidence of acute territorial infarct. Chest X-ray was completed which showed no changes compared to prior Chest X-Ray. Patient currently on 81mg aspirin and 40mg statin. Patient is known to me from last admission in November and appears near baseline. Is able to tell me he's at [facility] as well as month and year. Nurse mentioned mental status can wax and wane. Able to also tell me name of President. Supposedly more confused at night per nursing. Picture seems more delirium like with changes in mental status. Aricept added, no side effects or issue with the medication. Seems stable. Continued psych and mental status monitoring. Active Medications Aspirin (Asa -) 81 mg PO DAILY [facility] Last Admin: 01/06/19 10:08 Dose: 81 mg Atorvastatin Calcium (Lipitor -) 40 mg PO HS [facility] Last Admin: 01/06/19 21:04 Dose: 40 mg Donepezil HCl (Aricept -) 5 mg PO DAILY [facility] Last Admin: 01/06/19 13:26 Dose: 5 mg Enoxaparin Sodium (Lovenox -) 40 mg SQ DAILY [facility] Last Admin: 01/06/19 10:09 Dose: 40 mg Metoprolol Succinate (Toprol Xl -) 50 mg PO DAILY [facility] Thiamine HCl (Vitamin B1 -) 100 mg PO DAILY [facility] Last Admin: 01/06/19 10:09 Dose: 100 mg PHYSICAL EXAMINATION Vital Signs Period Temp Pulse Resp BP Sys/Stanton Pulse Ox Last 24 Hr 98 F-98.8 F 64-88 19-20 123-165/74-125 95 GENERAL: AAOx3, in no acute distress. Mental Status Exam: . Unkempt and poor hygiene. HEAD: Normal with no signs of trauma. EYES: Pupils equal, round and reactive to light, extraocular movements intact, sclera anicteric, conjunctiva clear. EARS, NOSE, THROAT: Ears normal, nares patent, oropharynx clear without exudates. Moist mucous membranes. NECK: Normal range of motion, supple without lymphadenopathy, JVD, or masses. LUNGS: Breath sounds equal, clear to auscultation bilaterally. No wheezes, and no crackles. HEART: Regular rate and rhythm, normal S1 and S2 without murmur, rub or gallop. ABDOMEN: Soft, nontender, not distended, normoactive bowel sounds, no guarding, no rebound, no masses. MUSCULOSKELETAL: Normal range of motion at all joints. UPPER EXTREMITIES: 2+ pulses, warm, well-perfused. No cyanosis. No clubbing. No peripheral edema. LOWER EXTREMITIES: 2+ pulses, warm, well-perfused. NEUROLOGICAL: Cranial nerves II-XII intact. Normal speech. Normal gait. Sensation grossly intact. PSYCHIATRIC: Cooperative. Good eye contact. Appropriate affect. SKIN: Normal capillary refill. CBCD WBC 6.2 K/mm3 (4.0-10.0) 01/07/19 06:07 RBC 5.37 M/mm3 (4.00-5.60) 01/07/19 06:07 Hgb 16.9 GM/dL (11.7-16.9) 01/07/19 06:07 Hct 49.7 % (35.4-49) H 01/07/19 06:07 MCV 92.6 fl (80-96) 01/07/19 06:07 MCHC 34.1 g/dl (32.0-35.9) 01/07/19 06:07 RDW 13.6 % (11.9-15.9) 01/07/19 06:07 Plt Count 185 K/MM3 (134-434) 01/07/19 06:07 MPV 9.9 fl (7.5-11.1) D 01/07/19 06:07 CMP Sodium 141 mmol/L (136-145) 01/04/19 13:59 Potassium 4.8 mmol/L (3.5-5.1) 01/04/19 13:59 Chloride 105 mmol/L (98-107) 01/04/19 13:59 Carbon Dioxide 28 mmol/L (21-32) 01/04/19 13:59 Anion Gap 8 MMOL/L (8-16) 01/04/19 13:59 BUN 14.0 mg/dL (7-18) 01/04/19 13:59 Creatinine 1.0 mg/dL (0.55-1.3) 01/04/19 13:59 Random Glucose 87 mg/dL (74-106) 01/04/19 13:59 Calcium 9.3 mg/dL (8.5-10.1) 01/04/19 13:59 Total Bilirubin 0.6 mg/dL (0.2-1) 01/04/19 13:59 AST 18 U/L (15-37) 01/04/19 13:59 ALT 16 U/L (13-61) 01/04/19 13:59 Alkaline Phosphatase 87 U/L (45-117) 01/04/19 13:59 Total Protein 7.4 g/dl (6.4-8.2) 01/04/19 13:59 Albumin 3.8 g/dl (3.4-5.0) 01/04/19 13:59 CARDIAC ENZYMES Creatine Kinase 95 U/L (26-308) 01/04/19 13:59 Troponin I < 0.02 ng/ml (0.00-0.05) 01/04/19 13:59 ASSESSMENT/PLAN: 78 M with no PMH who presented on day of admission from the [facility] resident clinic with altered mental status. He states that woke up day of admission and went out to check on something and then ended up here. He did not report any falls, no headache, dizziness, no chest pain, no shortness of breath, no abdominal pain, and no weakness. According to his emergency contact he had several episodes of confusion, getting lost and falls. He was last at [facility] for a mechanical fall. Upon arriving to the ED he was seen to be hypertensive at 146 /88. He had an EKG done which showed incomplete right bundle branch block, NSR, with left axis deviation. Head CT was completed with showed no evidence of acute intracranial hemorrhage, edema, midline shift, mass effect, skull fracture , no evidence of acute territorial infarct. Chest X-ray was completed which showed no changes compared to prior Chest X-Ray. Patient currently on 81mg aspirin and 40mg statin. Patient is known to me from last admission in November and appears near baseline. Is able to tell me he's at [facility] as well as month and year. Nurse mentioned mental status can wax and wane. Do not feel he needs MRI as no focal deficits and mental status seems near baseline during my encounter. Would optimize medically, maintain adequate hydration and Po intake. Conitnue reorientation if needed though seems well oriented now. Aricept added, no side effects or issue with the medication. Seems stable. Continued psych and mental status monitoring.
[2019-01-07] MEDS: ENOXAPARIN NA (PORCINE) 40 MG/0.4 ML DISP.SYRIN SQ SCH (09:59)
[2019-01-07] MEDS: THIAMINE HCL 100 MG TABLET (FP) PO SCH (09:59)
[2019-01-07] MEDS: DONEPEZIL HCL 5 MG TABLET (FP) PO SCH (09:59)
[2019-01-07] MEDS: ASPIRIN 81 MG CHEWABLE TABLETS PO SCH (09:59)
--- NOTE | 2019-01-07 11:06 | CON.PSY ---
Psychiatry Consult Chief Complaint: 78 Uz[place] old male with Dementia seen for psych eval for Wandering behaviour. No psych history. Symptoms: reports: Memory Impairment, Impulsivity, Disorganized/Disruptive Thoughts - Previous Psychiatric Treatment Outpatient: None Inpatient: None - Previous Substance Abuse Treatment Outpatient: None Inpatient: None - Current Medications Current Medications: Active Medications Aspirin (Asa -) 81 mg PO DAILY [facility] Last Admin: 01/07/19 09:59 Dose: 81 mg Atorvastatin Calcium (Lipitor -) 40 mg PO HS [facility] Last Admin: 01/06/19 21:04 Dose: 40 mg Donepezil HCl (Aricept -) 5 mg PO DAILY [facility] Last Admin: 01/07/19 09:59 Dose: 5 mg Enoxaparin Sodium (Lovenox -) 40 mg SQ DAILY [facility] Last Admin: 01/07/19 09:59 Dose: 40 mg Metoprolol Succinate (Toprol Xl -) 50 mg PO DAILY [facility] Last Admin: 01/07/19 09:59 Dose: 50 mg Thiamine HCl (Vitamin B1 -) 100 mg PO DAILY [facility] Last Admin: 01/07/19 09:59 Dose: 100 mg - Allergies Allergies: Allergies Allergy/AdvReac Type Severity Reaction Status Date / Time No Known Allergies Allergy Verified 12/01/18 14:27 - Current Living Status Usual Living Arrangement: Alone - Current Mental Status Evaluation Appearance: Disheveled Attitude: Guarded - Affect Affect: Constrictive Appropriateness: Not Appropriate - Mood Mood: Irritable - Speech/Language Expressive: Delayed - Psychomotor Activity Psychomotor Activity: Hyperactive - Thought Process Thought Process: Circumstantial - Thought Content Hallucinations: Absent Delusions: Absent - Self Perception Self Perception: No Impairment - Concentration Serial Sevens Intact: No Simple Calculations Intact: No - Abstraction Proverb Interpretation: Impaired Judgement: Moderately Impaired - Insight Insight: Impaired - Impulse Control Impulse Control: Minimally Impaired - Suicidal Ideation Suicidal Ideation: No - Homicidal Ideation Homicidal Ideation: No Assessment/Plan 1) [id number] po hs for wandering behaviour.
--- NOTE | 2019-01-07 15:21 | PN ---
Teaching Attending Note Name of Resident: Jordon Glez ATTENDING PHYSICIAN STATEMENT I saw and evaluated the patient. I reviewed the resident's note and discussed the case with the resident. I agree with the resident's findings and plan as documented. SUBJECTIVE: Patient is comfortable with no acute distress. patient is extremely confused. OBJECTIVE: Vital Signs Temperature 97.7 F 01/07/19 10:00 Pulse Rate 88 01/07/19 10:00 Respiratory Rate 20 01/07/19 10:00 Blood Pressure 129/83 01/07/19 10:00 O2 Sat by Pulse Oximetry (%) 98 01/07/19 09:00 GENERAL: The patient is awake, but disoriented x 2 , in NAD. HEAD: Normal with no signs of trauma. EYES: PERRL, extraocular movements intact, sclera anicteric, conjunctiva clear. ENT: Ears normal, oropharynx clear without exudates, moist mucous membranes. NECK: Trachea midline, full range of motion, supple. LUNGS: Breath sounds equal, clear to auscultation bilaterally, no wheezes, no crackles, no accessory muscle use. HEART: Regular rate and rhythm, S1, S2 without murmur, rub or gallop. ABDOMEN: Soft, NT, ND, normoactive bowel sounds, no guarding, no rebound, no hepatosplenomegaly, no masses. EXTREMITIES: 2+ pulses, warm, well-perfused, no edema. NEUROLOGICAL: Cranial nerves II through XII grossly intact. Normal speech, gait not observed. PSYCH: Normal mood, normal affect. SKIN: Warm, dry, normal turgor, no rashes or lesions noted CBCD WBC 6.2 K/mm3 (4.0-10.0) 01/07/19 06:07 RBC 5.37 M/mm3 (4.00-5.60) 01/07/19 06:07 Hgb 16.9 GM/dL (11.7-16.9) 01/07/19 06:07 Hct 49.7 % (35.4-49) H 01/07/19 06:07 MCV 92.6 fl (80-96) 01/07/19 06:07 MCHC 34.1 g/dl (32.0-35.9) 01/07/19 06:07 RDW 13.6 % (11.9-15.9) 01/07/19 06:07 Plt Count 185 K/MM3 (134-434) 01/07/19 06:07 MPV 9.9 fl (7.5-11.1) D 01/07/19 06:07 CMP Sodium 141 mmol/L (136-145) 01/04/19 13:59 Potassium 4.8 mmol/L (3.5-5.1) 01/04/19 13:59 Chloride 105 mmol/L (98-107) 01/04/19 13:59 Carbon Dioxide 28 mmol/L (21-32) 01/04/19 13:59 Anion Gap 8 MMOL/L (8-16) 01/04/19 13:59 BUN 14.0 mg/dL (7-18) 01/04/19 13:59 Creatinine 1.0 mg/dL (0.55-1.3) 01/04/19 13:59 Random Glucose 87 mg/dL (74-106) 01/04/19 13:59 Calcium 9.3 mg/dL (8.5-10.1) 01/04/19 13:59 Total Bilirubin 0.6 mg/dL (0.2-1) 01/04/19 13:59 AST 18 U/L (15-37) 01/04/19 13:59 ALT 16 U/L (13-61) 01/04/19 13:59 Alkaline Phosphatase 87 U/L (45-117) 01/04/19 13:59 Total Protein 7.4 g/dl (6.4-8.2) 01/04/19 13:59 Albumin 3.8 g/dl (3.4-5.0) 01/04/19 13:59 CARDIAC ENZYMES Creatine Kinase 95 U/L (26-308) 01/04/19 13:59 Troponin I < 0.02 ng/ml (0.00-0.05) 01/04/19 13:59 Current Medications Generic Name Dose Route Start Last Admin Trade Name Tommieq PRN Reason Stop Dose Admin Aspirin 81 mg 01/05/19 10:00 01/07/19 09:59 Asa - PO 81 mg DAILY MARISSA Administration Atorvastatin Calcium 40 mg 01/04/19 22:00 01/06/19 21:04 Lipitor - PO 40 mg HS MARISSA Administration Donepezil HCl 5 mg 01/06/19 13:00 01/07/19 09:59 Aricept - PO 5 mg DAILY [facility] Administration Enoxaparin Sodium 40 mg 01/05/19 10:00 01/07/19 09:59 Lovenox - SQ 40 mg DAILY AM[facility]ISSA Administration Metoprolol Succinate 50 mg 01/07/19 10:00 01/07/19 09:59 Toprol Xl - PO 50 mg DAILY [facility]SA Administration Olanzapine 5 mg 01/07/19 22:00 Zyprexa - PO HS [facility]ISSA Thiamine HCl 100 mg 01/05/19 10:00 01/07/19 09:59 Vitamin B1 - PO 100 mg DAILY [facility] Administration Home Medications Medication Instructions Recorded Aspirin [ASA -] 81 mg PO DAILY #30 tab.chew 12/06/18 Atorvastatin Ca [Lipitor] 40 mg PO HS #30 tablet 12/06/18 Metoprolol Succinate [Toprol Xl] 25 mg PO DAILY #30 tab.er.24h 12/06/18 ASSESSMENT AND PLAN: Patient is an 78yo male with no PMHx who presents to the ED with altered mental status likely secondary to worsening dementia. # Acute change of mental status with worsening of Dementia, neuro and pschy consult appreciated , neuro added arisept/thiamine continue and pschy added Zyprexa 5mg po hs for wandering behaviour as per dr Gabriel #HTN: Toprol XL 25 mg PO daily , will increase to 50mg daily , continue aspirin and lipitor as well. #HLD: Atorvastatin 40 mg HS DVT prophylaxis: Enoxaparin 40 mg .
--- NOTE | 2019-01-07 16:52 | PN ---
Physical Exam: SUBJECTIVE: Patient seen and examined in the morning. Patient reported to be wandering in the evening throughout the unit and trying to elope. Denies chest pain, shortness of breath, abdominal pain, fevers, chills, or other complaints. OBJECTIVE: Vital Signs Period Temp Pulse Resp BP Sys/Stanton Pulse Ox Last 24 Hr 97.2 F-98.7 F 62-88 20-20 129-165/83-125 98 GENERAL: AAOx3. HEAD: Normal with no signs of trauma. EYES: PERRL, extraocular movements intact, sclera anicteric, conjunctiva clear. No ptosis. ENT: Ears normal, nares patent, oropharynx clear without exudates, moist mucous membranes. LUNGS: Breath sounds equal, clear to auscultation bilaterally, no wheezes, no crackles, no accessory muscle use. HEART: Regular rate and rhythm, S1, S2 without murmur, rub or gallop. ABDOMEN: Soft, nontender, nondistended, normoactive bowel sounds, no guarding. EXTREMITIES: 2+ pulses, warm, well-perfused, no edema. NEUROLOGICAL: Cranial nerves II through XII grossly intact. Normal speech. PSYCH: Normal mood, normal affect. Laboratory Results - last 24 hr 01/07/19 06:07 WBC 6.2 RBC 5.37 Hgb 16.9 Hct 49.7 H MCV 92.6 MCH 31.6 MCHC 34.1 RDW 13.6 Plt Count 185 MPV 9.9 D Absolute Neuts (auto) 4.3 Neutrophils % 69.1 Lymphocytes % 16.2 Monocytes % 10.6 H Eosinophils % 3.0 Basophils % 1.1 Nucleated RBC % 0 Active Medications Generic Name Dose Route Start Last Admin Trade Name Freq PRN Reason Stop Dose Admin Aspirin 81 mg 01/05/19 10:00 01/07/19 09:59 Asa - PO 81 mg DAILY [facility] Administration Atorvastatin Calcium 40 mg 01/04/19 22:00 01/06/19 21:04 Lipitor - PO 40 mg HS [facility] Administration Donepezil HCl 5 mg 01/06/19 13:00 01/07/19 09:59 Aricept - PO 5 mg DAILY [facility] Administration Enoxaparin Sodium 40 mg 01/05/19 10:00 01/07/19 09:59 Lovenox - SQ 40 mg DAILY [facility] Administration Metoprolol Succinate 50 mg 01/07/19 10:00 01/07/19 09:59 Toprol Xl - PO 50 mg DAILY [facility] Administration Olanzapine 5 mg 01/07/19 22:00 Zyprexa - PO HS [facility] Thiamine HCl 100 mg 01/05/19 10:00 01/07/19 09:59 Vitamin B1 - PO 100 mg DAILY [facility] Administration ASSESSMENT/PLAN: 78 M with no PMH who presents to the ED with altered mental status likely secondary to worsening dementia. 1) Dementia -Waxing and waning mental status. -History of visits to [facility] under similar circumstances. -Thiamine 100 mg PO Qdaily -F/U with Dr. Peter to confirm diagnosis of dementia and social assessment -Donepezil 5 mg PO Qdaily -Olanzapine 5 mg PO HS -Neurology consulted, appreciate recs -Psychiatry consulted, appreciate recs 2) HTN -Metropolol Succinate 50 mg PO Qdaily 3) HLD -Atorvastatin 40 mg HS F: No fluids E: Will monitor CMP as needed N: Regular sodium restricted diet. DVT prophylaxis: Enoxaparin 40 mg QDaily Dispo: Admitted to medicine Visit type - Emergency Visit Emergency Visit: Yes ED Registration Date: 01/04/19 Care time: The patient presented to the Emergency Department on the above date and was hospitalized for further evaluation of their emergent condition. - New Patient This patient is new to me today: No - Critical Care Critical Care patient: No ATTENDING PHYSICIAN STATEMENT I saw and evaluated the patient. I reviewed the resident's note and discussed the case with the resident. I agree with the resident's findings and plan as documented. SUBJECTIVE: OBJECTIVE: ASSESSMENT AND PLAN:
[2019-01-07] MEDS: ATORVASTATIN CA 40 MG TABLET (FP) PO SCH (21:25)
[2019-01-07] MEDS: OLANZapine 5 MG TABLET PO SCH (21:25)
[2019-01-08 08:11] LABS: EOS % 4.7 % (0-4.5); HEMATOCRIT 48.6 % (35.4-49); HEMOGLOBIN 16.5 GM/dL (11.7-16.9); LYMPH % 16.1 % (8-40); MCH 31.5 pg (25.7-33.7); MEAN CELL VOLUME 92.6 fl (80-96); MEAN PLT VOLUME 9.3 fl (7.5-11.1); MONO % 12.3 % (3.8-10.2); NEUT % 65.9 % (42.8-82.8); PLATELET COUNT 181 K/MM3 (134-434); RBC 5.25 M/mm3 (4.00-5.60); RDW 13.5 % (11.9-15.9); WHITE BLOOD COUNT 5.6 K/mm3 (4.0-10.0)
[2019-01-08 08:49] LABS: ALBUMIN 3.3 g/dl (3.4-5.0); BILIRUBIN,TOTAL 0.6 mg/dL (0.2-1); BLOOD UREA NITROGEN 8.7 mg/dL (7-18); POTASSIUM 4.1 mmol/L (3.5-5.1); TOT PROT 6.4 g/dl (6.4-8.2)
--- NOTE | 2019-01-08 09:53 | PN ---
Progress Note (short form) - Note Progress Note: Neurology CHIEF COMPLAINT: Confusion PCP: Dr. Peter HISTORY OF PRESENT ILLNESS: 78 M with no PMH who presented on day of admission from the [facility] resident clinic with altered mental status. He states that woke up day of admission and went out to check on something and then ended up here. He did not report any falls, no headache, dizziness, no chest pain, no shortness of breath, no abdominal pain, and no weakness. According to his emergency contact he had several episodes of confusion, getting lost and falls. He was last at [facility] for a mechanical fall. Upon arriving to the ED he was seen to be hypertensive at 146 /88. He had an EKG done which showed incomplete right bundle branch block, NSR, with left axis deviation. Head CT was completed with showed no evidence of acute intracranial hemorrhage, edema, midline shift, mass effect, skull fracture , no evidence of acute territorial infarct. Chest X-ray was completed which showed no changes compared to prior Chest X-Ray. Patient currently on 81mg aspirin and 40mg statin. Patient is known to me from last admission in November and appears near baseline. Is able to tell me he's at [facility] as well as month and year. Nurse mentioned mental status can wax and wane. Able to also tell me name of President. Supposedly more confused at night per nursing. Picture seems more delirium like with changes in mental status. Aricept added, no side effects or issue with the medication. Seems stable. Continued psych and mental status monitoring. Psych consult reviewed and Zyprexa 5 mg added for wandering he gave year. Discussed with nurse this morning and patient seemed confused but pleasant. Nurse expressed concern regarding patient's ability to be safe at home, will defer to case management and psych social worker further assistance in services. Active Medications Aspirin (Asa -) 81 mg PO DAILY [facility] Last Admin: 01/06/19 10:08 Dose: 81 mg Atorvastatin Calcium (Lipitor -) 40 mg PO [facility] Last Admin: 01/06/19 21:04 Dose: 40 mg Donepezil HCl (Aricept -) 5 mg PO DAILY [facility] Last Admin: 01/06/19 13:26 Dose: 5 mg Enoxaparin Sodium (Lovenox -) 40 mg SQ DAILY [facility] Last Admin: 01/06/19 10:09 Dose: 40 mg Metoprolol Succinate (Toprol Xl -) 50 mg PO DAILY [facility] Thiamine HCl (Vitamin B1 -) 100 mg PO DAILY [facility] Last Admin: 01/06/19 10:09 Dose: 100 mg PHYSICAL EXAMINATION Vital Signs Period Temp Pulse Resp BP Sys/Stanton Pulse Ox Last 24 Hr 98 F-98.8 F 64-88 19-20 123-165/74-125 95 GENERAL: AAOx3, in no acute distress. Mental Status Exam: . Unkempt and poor hygiene. HEAD: Normal with no signs of trauma. EYES: Pupils equal, round and reactive to light, extraocular movements intact, sclera anicteric, conjunctiva clear. EARS, NOSE, THROAT: Ears normal, nares patent, oropharynx clear without exudates. Moist mucous membranes. NECK: Normal range of motion, supple without lymphadenopathy, JVD, or masses. LUNGS: Breath sounds equal, clear to auscultation bilaterally. No wheezes, and no crackles. HEART: Regular rate and rhythm, normal S1 and S2 without murmur, rub or gallop. ABDOMEN: Soft, nontender, not distended, normoactive bowel sounds, no guarding, no rebound, no masses. MUSCULOSKELETAL: Normal range of motion at all joints. UPPER EXTREMITIES: 2+ pulses, warm, well-perfused. No cyanosis. No clubbing. No peripheral edema. LOWER EXTREMITIES: 2+ pulses, warm, well-perfused. NEUROLOGICAL: Cranial nerves II-XII intact. Normal speech. Normal gait. Sensation grossly intact. PSYCHIATRIC: Cooperative. Good eye contact. Appropriate affect. SKIN: Normal capillary refill. CBCD WBC 6.2 K/mm3 (4.0-10.0) 01/07/19 06:07 RBC 5.37 M/mm3 (4.00-5.60) 01/07/19 06:07 Hgb 16.9 GM/dL (11.7-16.9) 01/07/19 06:07 Hct 49.7 % (35.4-49) H 01/07/19 06:07 MCV 92.6 fl (80-96) 01/07/19 06:07 MCHC 34.1 g/dl (32.0-35.9) 01/07/19 06:07 RDW 13.6 % (11.9-15.9) 01/07/19 06:07 Plt Count 185 K/MM3 (134-434) 01/07/19 06:07 MPV 9.9 fl (7.5-11.1) D 01/07/19 06:07 CMP Sodium 141 mmol/L (136-145) 01/04/19 13:59 Potassium 4.8 mmol/L (3.5-5.1) 01/04/19 13:59 Chloride 105 mmol/L (98-107) 01/04/19 13:59 Carbon Dioxide 28 mmol/L (21-32) 01/04/19 13:59 Anion Gap 8 MMOL/L (8-16) 01/04/19 13:59 BUN 14.0 mg/dL (7-18) 01/04/19 13:59 Creatinine 1.0 mg/dL (0.55-1.3) 01/04/19 13:59 Random Glucose 87 mg/dL (74-106) 01/04/19 13:59 Calcium 9.3 mg/dL (8.5-10.1) 01/04/19 13:59 Total Bilirubin 0.6 mg/dL (0.2-1) 01/04/19 13:59 AST 18 U/L (15-37) 01/04/19 13:59 ALT 16 U/L (13-61) 01/04/19 13:59 Alkaline Phosphatase 87 U/L (45-117) 01/04/19 13:59 Total Protein 7.4 g/dl (6.4-8.2) 01/04/19 13:59 Albumin 3.8 g/dl (3.4-5.0) 01/04/19 13:59 CARDIAC ENZYMES Creatine Kinase 95 U/L (26-308) 01/04/19 13:59 Troponin I < 0.02 ng/ml (0.00-0.05) 01/04/19 13:59 ASSESSMENT/PLAN: 78 M with no PMH who presented on day of admission from the [facility] resident clinic with altered mental status. He states that woke up day of admission and went out to check on something and then ended up here. He did not report any falls, no headache, dizziness, no chest pain, no shortness of breath, no abdominal pain, and no weakness. According to his emergency contact he had several episodes of confusion, getting lost and falls. He was last at [facility] for a mechanical fall. Upon arriving to the ED he was seen to be hypertensive at 146 /88. He had an EKG done which showed incomplete right bundle branch block, NSR, with left axis deviation. Head CT was completed with showed no evidence of acute intracranial hemorrhage, edema, midline shift, mass effect, skull fracture , no evidence of acute territorial infarct. Chest X-ray was completed which showed no changes compared to prior Chest X-Ray. Patient currently on 81mg aspirin and 40mg statin. Patient is known to me from last admission in November and appears near baseline. Is able to tell me he's at [facility] as well as month and year. Nurse mentioned mental status can wax and wane. Do not feel he needs MRI as no focal deficits and mental status seems near baseline during my encounter. Would optimize medically, maintain adequate hydration and Po intake. Conitnue reorientation if needed though seems well oriented now. Aricept added, no side effects or issue with the medication. Psych consult reviewed and Zyprexa 5 mg added for wandering he gave year. Discussed with nurse this morning and patient seemed confused but pleasant. Nurse expressed concern regarding patient's ability to be safe at home, will defer to case management and psych social worker further assistance in services.
[2019-01-08] MEDS: THIAMINE HCL 100 MG TABLET (FP) PO SCH (10:28)
[2019-01-08] MEDS: ASPIRIN 81 MG CHEWABLE TABLETS PO SCH (10:28)
[2019-01-08] MEDS: DONEPEZIL HCL 5 MG TABLET (FP) PO SCH (10:28)
[2019-01-08] MEDS: ENOXAPARIN NA (PORCINE) 40 MG/0.4 ML DISP.SYRIN SQ SCH (10:30)
--- NOTE | 2019-01-08 13:27 | PN ---
Physical Exam: SUBJECTIVE: Patient seen and examined in the morning. No acute events overnight. Patient had no complaints of chest pain, shortness of breath, abdominal pain, fever or chills. OBJECTIVE: Vital Signs Period Temp Pulse Resp BP Sys/Stanton Pulse Ox Last 24 Hr 97 F-97.2 F 56-70 20-20 137-158/75-93 99 GENERAL: The patient is awake, alert, but not oriented time or place. HEAD: Normal with no signs of trauma. EYES: PERRL, extraocular movements intact, sclera anicteric, conjunctiva clear. NECK: Trachea midline, full range of motion, supple. LUNGS: Breath sounds equal, clear to auscultation bilaterally, no wheezes, no crackles HEART: Regular rate and rhythm, S1, S2 without murmur, rub or gallop. ABDOMEN: Soft, nontender, nondistended, normoactive bowel sounds, no guarding, no rebound. EXTREMITIES: 2+ pulses, warm, well-perfused, no edema. NEUROLOGICAL: Cranial nerves II through XII grossly intact. Normal speech PSYCH: Normal mood, normal affect. Laboratory Results - last 24 hr 01/08/19 01/08/19 07:15 07:15 WBC 5.6 RBC 5.25 Hgb 16.5 Hct 48.6 MCV 92.6 MCH 31.5 MCHC 34.0 RDW 13.5 Plt Count 181 MPV 9.3 Absolute Neuts (auto) 3.7 Neutrophils % 65.9 Lymphocytes % 16.1 Monocytes % 12.3 H Eosinophils % 4.7 H Basophils % 1.0 Nucleated RBC % 0 Sodium 141 Potassium 4.1 Chloride 107 Carbon Dioxide 27 Anion Gap 7 L BUN 8.7 Creatinine 1.0 Est GFR (CKD-EPI)AfAm 82.02 Est GFR (CKD-EPI)NonAf 70.77 Random Glucose 78 Calcium 9.0 Total Bilirubin 0.6 AST 22 ALT 18 Alkaline Phosphatase 83 Total Protein 6.4 Albumin 3.3 L Active Medications Generic Name Dose Route Start Last Admin Trade Name Freq PRN Reason Stop Dose Admin Aspirin 81 mg 01/05/19 10:00 01/08/19 10:28 Asa - PO 81 mg DAILY MARISSA Administration Atorvastatin Calcium 40 mg 01/04/19 22:00 01/07/19 21:25 Lipitor - PO 40 mg HS MARISSA Administration Donepezil HCl 5 mg 01/06/19 13:00 01/08/19 10:28 Aricept - PO 5 mg DAILY MARISSA Administration Enoxaparin Sodium 40 mg 01/05/19 10:00 01/08/19 10:30 Lovenox - SQ 40 mg DAILY MARISSA Administration Metoprolol Succinate 50 mg 01/07/19 10:00 01/08/19 10:28 Toprol Xl - PO 50 mg DAILY MARISSA Administration Olanzapine 5 mg 01/07/19 22:00 01/07/19 21:25 Zyprexa - PO 5 mg HS MARISSA Administration Thiamine HCl 100 mg 01/05/19 10:00 01/08/19 10:28 Vitamin B1 - PO 100 mg DAILY MARISSA Administration ASSESSMENT/PLAN: 78 M with no PMH who presents to the ED with altered mental status likely secondary to worsening dementia. 1) Dementia -Waxing and waning mental status. -History of visits to [facility] under similar circumstances. -Thiamine 100 mg PO Qdaily -F/U with Dr. Peter to confirm diagnosis of dementia and social assessment -Donepezil 5 mg PO Qdaily -Olanzapine 5 mg PO HS -Neurology consulted, appreciate recs -Psychiatry consulted, appreciate recs -Attempting to reach family member/contacts so we can find placement for him. 2) HTN -Metropolol Succinate 50 mg PO Qdaily 3) HLD -Atorvastatin 40 mg HS F: No fluids E: Will monitor CMP as needed N: Regular sodium restricted diet. DVT prophylaxis: Enoxaparin 40 mg QDaily Dispo: Admitted to medicine Visit type - Emergency Visit Emergency Visit: Yes ED Registration Date: 01/04/19 Care time: The patient presented to the Emergency Department on the above date and was hospitalized for further evaluation of their emergent condition. - New Patient This patient is new to me today: No - Critical Care Critical Care patient: No ATTENDING PHYSICIAN STATEMENT I saw and evaluated the patient. I reviewed the resident's note and discussed the case with the resident. I agree with the resident's findings and plan as documented. SUBJECTIVE: OBJECTIVE: ASSESSMENT AND PLAN:
--- NOTE | 2019-01-08 15:06 | PN ---
Teaching Attending Note Name of Resident: Jordon Glez ATTENDING PHYSICIAN STATEMENT I saw and evaluated the patient. I reviewed the resident's note and discussed the case with the resident. I agree with the resident's findings and plan as documented. SUBJECTIVE: Patient is comfortable with no acute distress. No nausea or vomiting. patient is extremely confused. OBJECTIVE: Vital Signs Temperature 97 F L 01/08/19 10:33 Pulse Rate 56 L 01/08/19 07:07 Respiratory Rate 20 01/08/19 10:33 Blood Pressure 143/75 01/08/19 10:33 O2 Sat by Pulse Oximetry (%) 99 01/07/19 21:00 GENERAL: The patient is awake, but disoriented x 2 , in NAD . HEAD: Normal with no signs of trauma. EYES: PERRL, extraocular movements intact, sclera anicteric, conjunctiva clear. ENT: Ears normal, oropharynx clear without exudates, moist mucous membranes. NECK: Trachea midline, full range of motion, supple. LUNGS: Breath sounds equal, clear to auscultation bilaterally, no wheezes, no crackles, no accessory muscle use. HEART: Regular rate and rhythm, S1, S2 without murmur, rub or gallop. ABDOMEN: Soft, NT, ND, normoactive bowel sounds, no guarding, no rebound, no hepatosplenomegaly, no masses. EXTREMITIES: 2+ pulses, warm, well-perfused, no edema. NEUROLOGICAL: Cranial nerves II through XII grossly intact. Normal speech, gait not observed. PSYCH: Normal mood, normal affect. SKIN: Warm, dry, normal turgor, no rashes or lesions noted CBCD WBC 5.6 K/mm3 (4.0-10.0) 01/08/19 07:15 RBC 5.25 M/mm3 (4.00-5.60) 01/08/19 07:15 Hgb 16.5 GM/dL (11.7-16.9) 01/08/19 07:15 Hct 48.6 % (35.4-49) 01/08/19 07:15 MCV 92.6 fl (80-96) 01/08/19 07:15 MCHC 34.0 g/dl (32.0-35.9) 01/08/19 07:15 RDW 13.5 % (11.9-15.9) 01/08/19 07:15 Plt Count 181 K/MM3 (134-434) 01/08/19 07:15 MPV 9.3 fl (7.5-11.1) 01/08/19 07:15 CMP Sodium 141 mmol/L (136-145) 01/08/19 07:15 Potassium 4.1 mmol/L (3.5-5.1) 01/08/19 07:15 Chloride 107 mmol/L (98-107) 01/08/19 07:15 Carbon Dioxide 27 mmol/L (21-32) 01/08/19 07:15 Anion Gap 7 MMOL/L (8-16) L 01/08/19 07:15 BUN 8.7 mg/dL (7-18) 01/08/19 07:15 Creatinine 1.0 mg/dL (0.55-1.3) 01/08/19 07:15 Random Glucose 78 mg/dL (74-106) 01/08/19 07:15 Calcium 9.0 mg/dL (8.5-10.1) 01/08/19 07:15 Total Bilirubin 0.6 mg/dL (0.2-1) 01/08/19 07:15 AST 22 U/L (15-37) 01/08/19 07:15 ALT 18 U/L (13-61) 01/08/19 07:15 Alkaline Phosphatase 83 U/L (45-117) 01/08/19 07:15 Total Protein 6.4 g/dl (6.4-8.2) 01/08/19 07:15 Albumin 3.3 g/dl (3.4-5.0) L 01/08/19 07:15 CARDIAC ENZYMES Creatine Kinase 95 U/L (26-308) 01/04/19 13:59 Troponin I < 0.02 ng/ml (0.00-0.05) 01/04/19 13:59 Current Medications Generic Name Dose Route Start Last Admin Trade Name Jessica PRN Reason Stop Dose Admin Aspirin 81 mg 01/05/19 10:00 01/08/19 10:28 Asa - PO 81 mg DAILY MARISSA Administration Atorvastatin Calcium 40 mg 01/04/19 22:00 01/07/19 21:25 Lipitor - PO 40 mg HS MARISSA Administration Donepezil HCl 5 mg 01/06/19 13:00 01/08/19 10:28 Aricept - PO 5 mg DAILY MARISSA Administration Enoxaparin Sodium 40 mg 01/05/19 10:00 01/08/19 10:30 Lovenox - SQ 40 mg DAILY MARISSA Administration Metoprolol Succinate 50 mg 01/07/19 10:00 01/08/19 10:28 Toprol Xl - PO 50 mg DAILY MARISSA Administration Olanzapine 5 mg 01/07/19 22:00 01/07/19 21:25 Zyprexa - PO 5 mg HS MARISSA Administration Thiamine HCl 100 mg 01/05/19 10:00 01/08/19 10:28 Vitamin B1 - PO 100 mg DAILY MARISSA Administration Home Medications Medication Instructions Recorded Aspirin [ASA -] 81 mg PO DAILY #30 tab.chew 12/06/18 Atorvastatin Ca [Lipitor] 40 mg PO HS #30 tablet 12/06/18 Metoprolol Succinate [Toprol Xl] 25 mg PO DAILY #30 tab.er.24h 12/06/18 ASSESSMENT AND PLAN: Patient is an 78yo male with no PMHx who presents to the ED with altered mental status likely secondary to worsening dementia. # Acute change of mental status with worsening of Dementia, neuro and pschy consult appreciated , neuro added arisept/thiamine and zyprexa 5mg as per [facility] #HTN: Toprol XL 25 mg PO daily , will increase to 50mg daily , continue aspirin and lipitor as well. #HLD: Atorvastatin 40 mg HS DVT prophylaxis: Enoxaparin 40 mg zyprexa 5mg po hs for wandering behaviour as per dr Gabriel. placement , sw is on the case
[2019-01-08] MEDS: OLANZapine 5 MG TABLET PO SCH (21:10)
[2019-01-08] MEDS: ATORVASTATIN CA 40 MG TABLET (FP) PO SCH (21:10)
--- NOTE | 2019-01-09 09:13 | PN ---
Progress Note (short form) - Note Progress Note: Neurology CHIEF COMPLAINT: Confusion PCP: Dr. Peter HISTORY OF PRESENT ILLNESS: 78 M with no PMH who presented on day of admission from the [facility] resident clinic with altered mental status. He states that woke up day of admission and went out to check on something and then ended up here. He did not report any falls, no headache, dizziness, no chest pain, no shortness of breath, no abdominal pain, and no weakness. According to his emergency contact he had several episodes of confusion, getting lost and falls. He was last at [facility] for a mechanical fall. Upon arriving to the ED he was seen to be hypertensive at 146 /88. He had an EKG done which showed incomplete right bundle branch block, NSR, with left axis deviation. Head CT was completed with showed no evidence of acute intracranial hemorrhage, edema, midline shift, mass effect, skull fracture , no evidence of acute territorial infarct. Chest X-ray was completed which showed no changes compared to prior Chest X-Ray. Patient currently on 81mg aspirin and 40mg statin. Patient is known to me from last admission in November and appears near baseline. Is able to tell me he's at [facility] as well as month and year. Nurse mentioned mental status can wax and wane. Able to also tell me name of President. Supposedly more confused at night per nursing. Picture seems more delirium like with changes in mental status. Aricept added, no side effects or issue with the medication. Seems stable. Continued psych and mental status monitoring. Psych consult reviewed and Zyprexa 5 mg added for wandering he gave year. Neurologically, patient appears to be stabilized and is being considered for placement, no objection to this. Active Medications Aspirin (Asa -) 81 mg PO DAILY [facility] Last Admin: 01/08/19 10:28 Dose: 81 mg Atorvastatin Calcium (Lipitor -) 40 mg PO HS [facility] Last Admin: 01/08/19 21:10 Dose: 40 mg Donepezil HCl (Aricept -) 5 mg PO DAILY [facility] Last Admin: 01/08/19 10:28 Dose: 5 mg Enoxaparin Sodium (Lovenox -) 40 mg SQ DAILY [facility] Last Admin: 01/08/19 10:30 Dose: 40 mg Metoprolol Succinate (Toprol Xl -) 50 mg PO DAILY [facility] Last Admin: 01/08/19 10:28 Dose: 50 mg Olanzapine (Zyprexa -) 5 mg PO HS [facility] Last Admin: 01/08/19 21:10 Dose: 5 mg Thiamine HCl (Vitamin B1 -) 100 mg PO DAILY [facility] Last Admin: 01/08/19 10:28 Dose: 100 mg PHYSICAL EXAMINATION Vital Signs Period Temp Pulse Resp BP Sys/Stanton Pulse Ox Last 24 Hr 97 F-98.7 F 59-69 20-20 132-150/66-89 99 HEAD: Normal with no signs of trauma. EYES: Pupils equal, round and reactive to light, extraocular movements intact, sclera anicteric, conjunctiva clear. EARS, NOSE, THROAT: Ears normal, nares patent, oropharynx clear without exudates. Moist mucous membranes. NECK: Normal range of motion, supple without lymphadenopathy, JVD, or masses. LUNGS: Breath sounds equal, clear to auscultation bilaterally. No wheezes, and no crackles. HEART: Regular rate and rhythm, normal S1 and S2 without murmur, rub or gallop. ABDOMEN: Soft, nontender, not distended, normoactive bowel sounds, no guarding, no rebound, no masses. MUSCULOSKELETAL: Normal range of motion at all joints. UPPER EXTREMITIES: 2+ pulses, warm, well-perfused. No cyanosis. No clubbing. No peripheral edema. LOWER EXTREMITIES: 2+ pulses, warm, well-perfused. NEUROLOGICAL: Cranial nerves II-XII intact. Normal speech. Normal gait. Sensation grossly intact. PSYCHIATRIC: Cooperative. Good eye contact. Appropriate affect. SKIN: Normal capillary refill. CBCD WBC 5.6 K/mm3 (4.0-10.0) 01/08/19 07:15 RBC 5.25 M/mm3 (4.00-5.60) 01/08/19 07:15 Hgb 16.5 GM/dL (11.7-16.9) 01/08/19 07:15 Hct 48.6 % (35.4-49) 01/08/19 07:15 MCV 92.6 fl (80-96) 01/08/19 07:15 MCHC 34.0 g/dl (32.0-35.9) 01/08/19 07:15 RDW 13.5 % (11.9-15.9) 01/08/19 07:15 Plt Count 181 K/MM3 (134-434) 01/08/19 07:15 MPV 9.3 fl (7.5-11.1) 01/08/19 07:15 CMP Sodium 141 mmol/L (136-145) 01/08/19 07:15 Potassium 4.1 mmol/L (3.5-5.1) 01/08/19 07:15 Chloride 107 mmol/L (98-107) 01/08/19 07:15 Carbon Dioxide 27 mmol/L (21-32) 01/08/19 07:15 Anion Gap 7 MMOL/L (8-16) L 01/08/19 07:15 BUN 8.7 mg/dL (7-18) 01/08/19 07:15 Creatinine 1.0 mg/dL (0.55-1.3) 01/08/19 07:15 Random Glucose 78 mg/dL (74-106) 01/08/19 07:15 Calcium 9.0 mg/dL (8.5-10.1) 01/08/19 07:15 Total Bilirubin 0.6 mg/dL (0.2-1) 01/08/19 07:15 AST 22 U/L (15-37) 01/08/19 07:15 ALT 18 U/L (13-61) 01/08/19 07:15 Alkaline Phosphatase 83 U/L (45-117) 01/08/19 07:15 Total Protein 6.4 g/dl (6.4-8.2) 01/08/19 07:15 Albumin 3.3 g/dl (3.4-5.0) L 01/08/19 07:15 CARDIAC ENZYMES Creatine Kinase 95 U/L (26-308) 01/04/19 13:59 Troponin I < 0.02 ng/ml (0.00-0.05) 01/04/19 13:59 ASSESSMENT/PLAN: 78 M with no PMH who presented on day of admission from the [facility] resident clinic with altered mental status. He states that woke up day of admission and went out to check on something and then ended up here. He did not report any falls, no headache, dizziness, no chest pain, no shortness of breath, no abdominal pain, and no weakness. According to his emergency contact he had several episodes of confusion, getting lost and falls. He was last at [facility] for a mechanical fall. Upon arriving to the ED he was seen to be hypertensive at 146 /88. He had an EKG done which showed incomplete right bundle branch block, NSR, with left axis deviation. Head CT was completed with showed no evidence of acute intracranial hemorrhage, edema, midline shift, mass effect, skull fracture , no evidence of acute territorial infarct. Chest X-ray was completed which showed no changes compared to prior Chest X-Ray. Patient currently on 81mg aspirin and 40mg statin. Patient is known to me from last admission in November and appears near baseline. Is able to tell me he's at [facility] as well as month and year. Nurse mentioned mental status can wax and wane. Do not feel he needs MRI as no focal deficits and mental status seems near baseline during my encounter. Would optimize medically, maintain adequate hydration and Po intake. Conitnue reorientation if needed though seems well oriented now. Aricept added, no side effects or issue with the medication. Psych consult reviewed and Zyprexa 5 mg added for wandering he gave year. Neurologically, patient appears to be stabilized and is being considered for placement, no objection to this.
[2019-01-09] MEDS: ASPIRIN 81 MG CHEWABLE TABLETS PO SCH (10:37)
[2019-01-09] MEDS: DONEPEZIL HCL 5 MG TABLET (FP) PO SCH (10:38)
[2019-01-09] MEDS: THIAMINE HCL 100 MG TABLET (FP) PO SCH (10:38)
[2019-01-09] MEDS: ENOXAPARIN NA (PORCINE) 40 MG/0.4 ML DISP.SYRIN SQ SCH (10:38)
--- NOTE | 2019-01-09 14:21 | PN ---
Teaching Attending Note Name of Resident: Brina Verdugo ATTENDING PHYSICIAN STATEMENT I saw and evaluated the patient. I reviewed the resident's note and discussed the case with the resident. I agree with the resident's findings and plan as documented. SUBJECTIVE: No fever or chills. No pain ,no BASS . OBJECTIVE: awake, pleasant, knows he is in hospital , know year , not month or date or age. Cv: RRR Lungs:CTAB Ext : No edema ASSESSMENT AND PLAN: 78 y/o man with h/o dementia , HTN, and HLP who presented with wandering behaviour 1- dementia 2- Wandering behavior 3- H/o HTN and HLP plan : - cont HTN and HLP meds - cont zyprexa and aricept dc to NH.
[2019-01-09 15:23] VITALS: BP 140/69; PULSE 68; TEMP 97.3
--- NOTE | 2019-01-09 17:48 | DS ---
Physical Exam: SUBJECTIVE: Patient seen and examined in the morning. Had no acute events overnight. Had no complaints of chest pain, shortness of breath, abdominal pain , fevers, or chills. OBJECTIVE: Vital Signs Period Temp Pulse Resp BP Sys/Stanton Pulse Ox Last 24 Hr 97.3 F-98.7 F 63-82 18-20 132-156/66-96 99-99 PHYSICAL EXAM GENERAL: The patient is AAOX2. HEAD: Normal with no signs of trauma. EYES: PERRL, extraocular movements intact, sclera anicteric, conjunctiva clear. NECK: Trachea midline, full range of motion, supple. LUNGS: Breath sounds equal, clear to auscultation bilaterally, no wheezes, no crackles, no accessory muscle use. HEART: Regular rate and rhythm, S1, S2 without murmur, rub or gallop. ABDOMEN: Soft, nontender, nondistended, normoactive bowel sounds, no guarding, no rebound. EXTREMITIES: 2+ pulses, warm, well-perfused, no edema. NEUROLOGICAL: Cranial nerves II through XII grossly intact. Normal speech, gait not observed. LABS CBC, BMP 01/08/19 07:15 01/08/19 07:15 HOSPITAL COURSE: Date of Admission:01/04/19 Date of Discharge: 01/09/19 78 M with PMH of HTN and likely dementia who was admitted due to altered mental status. Patient had a MMSE on on admission but was not aware of how he had come to the hospital with waxing and waning mental status. Chest X-Ray and Head CT was negative. Patient was evaluated by neurology who started him on Donepezil 5 mg daily, and psychiatry who started him Olanzapine 5 mg daily. Patient was restarted on Atorvastatin 40 mg daily, and metoprolol 25 mg Daily. On day of discharge Neurology deemed he was fit for discharge and he was discharged to [facility] on Atorvastatin 40 mg daily, metoprolol 25 mg daily, donepezil 5 mg daily, olanzapine 5 mg daily, aspirin 81 mg daily. Imaging: Head CT: No evidence of acute intracranial hemorrhage, edema, midline shift, mass effect, skull fracture, no evidence of acute territorial infarct. Chest X-Ray: Acute chest process is not seen. Bones and soft tissues are intact. There are some degenerative changes. No adverse change from 12/01/18 X- Ray. Minutes to complete discharge: 35 Discharge Summary Problems reviewed: Yes Reason For Visit: DEMENTIA Condition: Good - Instructions Diet, Activity, Other Instructions: You were hospitalized because you were confused. We scanned your brain and it did not show any bleeding. While you were here we monitored you and you are stable for discharge. We started you on new medications while you were here. Please take the following : For your blood pressure please take: Metoprolol 25 mg by mouth daily Aspirin 81 mg by mouth daily For your cholesterol please take: Atorvastatin 40 mg by mouth nightly For your dementia please take: Donepezil 5 mg by mouth daily Zyprexa 5 mg by mouth daily Please follow up with Dr. Peter within 1 week Please follow up with Dr. Velásquez within 1 week Please come back to the emergency department if you have chest pain, shortness of breath, nausea and vomiting, or your symptoms worsen. Referrals: Nhan Peter MD [Staff Physician] - 1 Week Paul Velásquez MD [Staff Physician] - 1 Week Disposition: ASSISTED FACILITY - Home Medications Comprehensive Discharge Medication List: Ambulatory Orders Aspirin [ASA -] 81 mg PO DAILY #30 tab.chew 01/09/19 Atorvastatin Ca [Lipitor] 40 mg PO HS #30 tablet 01/09/19 Donepezil HCl [Aricept -] 5 mg PO DAILY #30 tablet 01/09/19 Metoprolol Succinate [Toprol Xl] 25 mg PO DAILY #30 tab.er.24h 01/09/19 Olanzapine [Zyprexa -] 5 mg PO HS #30 tablet 01/09/19 This patient is new to me today: No Emergency Visit: Yes ED Registration Date: 01/04/19 Care time: The patient presented to the Emergency Department on the above date and was hospitalized for further evaluation of their emergent condition. Critical Care patient: No - Discharge Referral Referred to [id number] No ATTENDING PHYSICIAN STATEMENT I saw and evaluated the patient. I reviewed the resident's note and discussed the case with the resident. I agree with the resident's findings and plan as documented. SUBJECTIVE: OBJECTIVE: ASSESSMENT AND PLAN:
== END 2019-01-09 15:34 | DRG 884 ==
LOC: JER 12:41 → JERBED 15:04 → J8W 17:23
PROVIDERS: ADMIT Internal Medicine; ATTEND Internal Medicine
DX: F03.91 Unspecified dementia, unspecified severity, with behavioral disturbance (principal); Z91.83 Wandering in diseases classified elsewhere; I45.10 Unspecified right bundle-branch block; I10 Essential (primary) hypertension; E78.5 Hyperlipidemia, unspecified
CPT/HCPCS: 36415; 70450-TC; 71046-TC-FY; 80053; 81003; 82550; 82607; 82746; 82962; 84484; 85025; 87086; 93005; 93010; 97116-GP; 97161-GP; 99284-25

== ENCOUNTER 2020-04-03 12:46 | Inpatient (IN) | payer OTHER ==
[2020-04-03 13:05] VITALS: BMI 24.7
[2020-04-03 16:06] LABS: BASO % 0.7 % (0-2.0); EOS % 2.4 % (0-4.5); HEMATOCRIT 46.2 % (35.4-49); HEMOGLOBIN 15.6 GM/dL (11.7-16.9); LYMPH % 19.3 % (8-40); MCH 31.4 pg (25.7-33.7); MCHC 33.7 g/dl (32.0-35.9); MEAN CELL VOLUME 93.1 fl (80-96); MEAN PLT VOLUME 10.2 fl (7.5-11.1); MONO % 11.6 % (3.8-10.2); PLATELET COUNT 144 K/MM3 (134-434); RBC 4.96 M/mm3 (4.00-5.60); RDW 13.2 % (11.9-15.9); WHITE BLOOD COUNT 5.8 K/mm3 (4.0-10.0)
[2020-04-03 16:21] LABS: CHLORIDE 102 mmol/L (98-107); SODIUM 136 mmol/L (136-145)
[2020-04-03 16:24] LABS: ALBUMIN 3.4 g/dl (3.4-5.0); CO2 30 mmol/L (21-32); GLUCOSE,RANDOM 93 mg/dL (74-106)
[2020-04-03 16:26] LABS: CHOLESTEROL 156 mg/dL (50-200); TRIGLYCERIDES 86 mg/dL (0-150)
[2020-04-03 16:27] LABS: CREATININE 1.1 mg/dL (0.55-1.3); LDL CHOLESTEROL (ONLY SJRH) 83 mg/dL (5-100); SGOT/AST 55 U/L (15-37); SGPT/ALT 30 U/L (13-61)
[2020-04-03 16:28] LABS: BILIRUBIN,TOTAL 0.5 mg/dL (0.2-1); TOT PROT 7.5 g/dl (6.4-8.2)
[2020-04-03 16:29] LABS: HDL CHOLESTEROL 51 mg/dL (40-60)
[2020-04-03 16:30] LABS: ALK PHOS 85 U/L (45-117)
[2020-04-03 16:49] LABS: ANION GAP 4 MMOL/L (8-16)
[2020-04-03 17:03] LABS: POTASSIUM 6.1 mmol/L (3.5-5.1)
[2020-04-03 17:30] VITALS: TEMP 98.7
[2020-04-03] MEDS ORDERED: ATORVASTATIN CA 40 MG TABLET (FP) PO ONE (17:32)
[2020-04-03] MEDS ORDERED: ASPIRIN 81 MG CHEWABLE TABLETS PO ONE (17:32)
[2020-04-03] MEDS ORDERED: ASPIRIN 81 MG CHEWABLE TABLETS ONE (17:38)
[2020-04-03] MEDS ORDERED: ATORVASTATIN CA 40 MG TABLET (FP) ONE (17:38)
[2020-04-03 17:56] LABS: POTASSIUM 3.8 mmol/L (3.5-5.1)
[2020-04-03 17:59] LABS: BLOOD UREA NITROGEN 11.4 mg/dL (7-18)
[2020-04-03 18:02] LABS: CREATININE 0.9 mg/dL (0.55-1.3)
[2020-04-03 18:40] LABS: EPI CELLS 30 /uL (0-25.1); HYALINE CASTS 0 /uL (0-3.1); URINE APPEARANCE CLEAR; URINE BACTERIA 47 /uL (0-1359); URINE BILIRUBIN NEGATIVE (NEGATIVE); URINE COLOR YELLOW; URINE GLUCOSE (UA) NEGATIVE (NEGATIVE); URINE KETONE NEGATIVE (NEGATIVE); URINE LEUK ESTERASE 3+ (NEGATIVE); URINE NITRITE NEGATIVE (NEGATIVE); URINE PROTEIN NEGATIVE (NEGATIVE); URINE RBC 7 /uL (0-23.9); URINE UROBILINOGEN 0.2 mg/dL (0.2-1.0); URINE WBC 213 /uL (0-25.8)
[2020-04-04 06:31] LABS: BASO % 4.3 % (0-2.0); EOS % 5.2 % (0-4.5); HEMATOCRIT 46.4 % (35.4-49); HEMOGLOBIN 15.9 GM/dL (11.7-16.9); LYMPH % 13.6 % (8-40); MCH 31.6 pg (25.7-33.7); MCHC 34.3 g/dl (32.0-35.9); MEAN CELL VOLUME 92.1 fl (80-96); MEAN PLT VOLUME 9.3 fl (7.5-11.1); MONO % 8.6 % (3.8-10.2); NEUT % 68.3 % (42.8-82.8); PLATELET COUNT 146 K/MM3 (134-434); RBC 5.04 M/mm3 (4.00-5.60); RDW 13.1 % (11.9-15.9); WHITE BLOOD COUNT 5.8 K/mm3 (4.0-10.0)
[2020-04-04 06:48] LABS: CALCIUM 8.7 mg/dL (8.5-10.1)
[2020-04-04 06:49] LABS: ALBUMIN 3.2 g/dl (3.4-5.0); BLOOD UREA NITROGEN 11.9 mg/dL (7-18)
[2020-04-04 06:52] LABS: CREATININE 0.8 mg/dL (0.55-1.3)
[2020-04-04 06:53] LABS: BILIRUBIN,TOTAL 0.6 mg/dL (0.2-1)
[2020-04-04 06:54] LABS: TOT PROT 6.6 g/dl (6.4-8.2)
[2020-04-04] MEDS ORDERED: ASPIRIN COATED 81 MG TABLET.EC PO SCH (10:00)
[2020-04-04] MEDS ORDERED: ASPIRIN COATED 81 MG TABLET.EC ONE (10:17)
[2020-04-04 20:19] VITALS: BP 150/72; PULSE 80
[2020-04-04] MEDS ORDERED: DONEPEZIL HCL 10 MG TABLET (FP) PO SCH (22:00)
== END 2020-04-04 20:15 | disposition home or self-care (01) | DRG 884 ==
LOC: JER 12:46 → JERBED 18:02
PROVIDERS: ATTEND Family Medicine
DX: F03.90 Unspecified dementia, unspecified severity, without behavioral disturbance, psychotic disturbance, mood disturbance, and anxiety (principal); G45.9 Transient cerebral ischemic attack, unspecified; I10 Essential (primary) hypertension; E78.5 Hyperlipidemia, unspecified; R41.82 Altered mental status, unspecified; R47.1 Dysarthria and anarthria; R27.0 Ataxia, unspecified; R26.9 Unspecified abnormalities of gait and mobility
CPT/HCPCS: 36415; 70450-TC; 80048; 80053; 80061; 81003; 82550; 82553; 82607; 83036; 83721; 84443; 84484; 85025; 86780; 86850; 86900; 86901; 93005; 93010; 99285-25; C9803; U0003

== ENCOUNTER 2022-08-21 08:21 | Inpatient (IN) | payer OTHER ==
[2022-08-21 08:38] VITALS: BMI 24.6
[2022-08-21] MEDS ORDERED: HALOPERIDOL LACTATE 5 MG/ML IM ONE ×2 (08:53→08:54)
[2022-08-21 10:51] LABS: BASO % 0.2 % (0-2.0); EOS % 0.1 % (0-4.5); HEMOGLOBIN 15.1 GM/dL (11.7-16.9); LYMPH % 4.8 % (8-40); MCH 30.9 pg (25.7-33.7); MCHC 32.8 g/dl (32.0-35.9); MEAN CELL VOLUME 94.1 fl (80-96); MEAN PLT VOLUME 8.7 fl (7.5-11.1); MONO % 7.4 % (3.8-10.2); NEUT % 87.5 % (42.8-82.8); PLATELET COUNT 273 10^3/uL (134-434); RDW 13.1 % (11.9-15.9)
[2022-08-21 10:58] LABS: INR 1.1 (0.83-1.09); PROTHROMBIN TIME (PATIENT) 12.7 SEC (9.7-13.0)
[2022-08-21 11:06] LABS: POTASSIUM 3.6 mmol/L (3.5-5.1)
[2022-08-21 11:08] LABS: ALBUMIN 3.3 g/dl (3.4-5.0); CALCIUM 8.9 mg/dL (8.5-10.1); MAGNESIUM 2.1 mg/dL (1.8-2.4)
[2022-08-21 11:09] LABS: BLOOD UREA NITROGEN 14.2 mg/dL (7-18)
[2022-08-21 11:11] LABS: CREATININE 1.3 mg/dL (0.55-1.3)
[2022-08-21 11:12] LABS: PHOSPHOROUS 1.4 mg/dL (2.5-4.9)
[2022-08-21 11:13] LABS: BILIRUBIN,TOTAL 0.6 mg/dL (0.2-1); TOT PROT 7.1 g/dl (6.4-8.2)
[2022-08-21 11:15] LABS: LACTIC ACID 4.6 mmol/L (0.4-2.0)
[2022-08-21 12:22] LABS: EPI CELLS 23 /uL (0-25.1); HYALINE CASTS 5 /uL (0-3.1); PH,URINE 5.5 (5.0-8.0); URINE APPEARANCE CLEAR; URINE BACTERIA 7 /uL (0-1359); URINE BILIRUBIN NEGATIVE (NEGATIVE); URINE COLOR YELLOW; URINE GLUCOSE (UA) NEGATIVE (NEGATIVE); URINE KETONE TRACE (NEGATIVE); URINE LEUK ESTERASE NEGATIVE (NEGATIVE); URINE NITRITE NEGATIVE (NEGATIVE); URINE PROTEIN 1+ (NEGATIVE); URINE RBC 188 /uL (0-23.9); URINE UROBILINOGEN 0.2 mg/dL (0.2-1.0); URINE WBC 37 /uL (0-25.8)
[2022-08-21] MEDS ORDERED: SODIUM CHLORIDE 0.9% 1000 ML INFUS.BAG IV ONE (13:05)
[2022-08-21] MEDS: D5-1/2NS+20 MEQ KCL - 20 MEQ/1,000 ML INFUS.BAG IV SCH (16:25)
[2022-08-21] MEDS: HEPARIN NA (PORCINE) 5,000 UNITS/ML 1ML VIAL SQ SCH (21:45)
[2022-08-21] MEDS: levETIRAcetam 500 MG/5 ML INJECTION VIAL IVPB SCH (21:45)
[2022-08-22] MEDS: D5-1/2NS+20 MEQ KCL - 20 MEQ/1,000 ML INFUS.BAG IV SCH ×2 (04:30→15:15)
[2022-08-22] MEDS: HEPARIN NA (PORCINE) 5,000 UNITS/ML 1ML VIAL SQ SCH ×3 (05:54→22:26)
[2022-08-22 07:33] LABS: BASO % 0.5 % (0-2.0); EOS % 0.6 % (0-4.5); HEMATOCRIT 42.8 % (35.4-49); HEMOGLOBIN 14.5 GM/dL (11.7-16.9); LYMPH % 13.6 % (8-40); MCH 31.7 pg (25.7-33.7); MEAN CELL VOLUME 93.5 fl (80-96); MEAN PLT VOLUME 9.8 fl (7.5-11.1); NEUT % 75.3 % (42.8-82.8); PLATELET COUNT 237 10^3/uL (134-434); RBC 4.58 M/mm3 (4.00-5.60); RDW 12.9 % (11.9-15.9); WHITE BLOOD COUNT 9.4 K/mm3 (4.0-10.0)
[2022-08-22 07:46] LABS: POTASSIUM 4.2 mmol/L (3.5-5.1)
[2022-08-22 08:01] LABS: ALBUMIN 2.9 g/dl (3.4-5.0); BLOOD UREA NITROGEN 10.4 mg/dL (7-18); CALCIUM 8.5 mg/dL (8.5-10.1); MAGNESIUM 2.1 mg/dL (1.8-2.4)
[2022-08-22 08:03] LABS: TOT PROT 6.4 g/dl (6.4-8.2)
[2022-08-22 08:04] LABS: CREATININE 0.9 mg/dL (0.55-1.3)
[2022-08-22] MEDS: amLODIPine BESYLATE 5 MG TABLET (FP) PO SCH (09:23)
[2022-08-22] MEDS: levETIRAcetam 500 MG/5 ML INJECTION VIAL IVPB SCH ×2 (09:23→22:26)
[2022-08-23] MEDS: HEPARIN NA (PORCINE) 5,000 UNITS/ML 1ML VIAL SQ SCH ×3 (06:00→22:11)
[2022-08-23] MEDS: levETIRAcetam 500 MG/5 ML INJECTION VIAL IVPB SCH (11:24)
[2022-08-23] MEDS: amLODIPine BESYLATE 5 MG TABLET (FP) PO SCH (11:24)
[2022-08-23] MEDS: D5-1/2NS+20 MEQ KCL - 20 MEQ/1,000 ML INFUS.BAG IV SCH (15:06)
[2022-08-23] MEDS: levETIRAcetam 500 MG TABLET (FP) PO SCH (22:11)
[2022-08-24] MEDS: HEPARIN NA (PORCINE) 5,000 UNITS/ML 1ML VIAL SQ SCH ×3 (05:33→21:20)
[2022-08-24 05:52] VITALS: RESP 18
[2022-08-24] MEDS: levETIRAcetam 500 MG TABLET (FP) PO SCH ×2 (10:45→21:20)
[2022-08-24] MEDS: amLODIPine BESYLATE 5 MG TABLET (FP) PO SCH (10:45)
[2022-08-24 18:44] VITALS: BP 107/74; PULSE 88; TEMP 98.9
== END 2022-08-24 21:35 | DRG 101 ==
LOC: JER 08:21 → JERBED 14:13 → J4S 15:49
PROVIDERS: ADMIT Family Medicine; ATTEND Family Medicine
DX: R56.9 Unspecified convulsions (principal); E87.20 Acidosis, unspecified; F03.90 Unspecified dementia, unspecified severity, without behavioral disturbance, psychotic disturbance, mood disturbance, and anxiety; I10 Essential (primary) hypertension; R77.8 Other specified abnormalities of plasma proteins; D72.829 Elevated white blood cell count, unspecified
CPT/HCPCS: 0241U-QW; 36415; 70450-TC; 71045-TC-FY; 80053; 80061; 81003; 82550; 82553; 82962; 83036; 83605; 83735; 84100; 84443; 84484; 85025; 85610; 85730; 86850; 86900; 86901; 87086; 87635; 93005; 93010; 93306-TC; 94010; 95816; 99285-25; J1644